=== PATIENT | male | born 1955 | race Caucasian/White ===

== ENCOUNTER 2017-05-11 09:42 | Inpatient (IN) | payer BC ==
[2017-05-10 10:45] VITALS: BMI 31.8
--- NOTE | 2017-05-10 21:10 | HP ---
HISTORY OF PRESENT ILLNESS: Rob Felix is a 61-year-old male patient who I have seen on 11/25/2016 for diverticulitis. 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 At that time, the patient had a CAT scan read by Dr. Pastor revealing changes with sigmoid diverticulitis and a 4 mm nonobstr ucting left renal calculus. The patient was treated with intravenous antibiotics and discharged home , but readmitted for continued intravenous antibiotics. Since that time although his pain and tender ness is improved in left lower quadrant, it is not resolved. He continues to have discomfort and thi s has exacerbated on two different occasions undergoing repeat course of antibiotics. The patient lechuga s recently undergone a colonoscopy on 04/25/2017 revealing hyperplastic polyps and no dysplasia, Dr. Romero. Due to his ongoing pain and tenderness, in Dr. Romero's opinion, the patient should consider col on resection. The patient has called requesting that due to his ongoing symptoms. He has been resta rted in his Augmentin recently on 04/09/2017. The patient will undergo a laparoscopic sigmoid colon resection. He understands the risks of infection, bleeding, anastomotic leakage, reoperation, ureter al injury, etc. and possible diverting ostomy and consents. PAST MEDICAL HISTORY: Environmental allergies, hypertension, GERD. PAST SURGICAL HISTORY: Diverticulitis. ALLERGIES: None. TOBACCO: None. ALCOHOL: None. MEDICATIONS: Augmentin, Lotrel 10/20 daily, vitamin C daily, meloxicam daily. PAST SURGICAL HISTORY: Arthroscopy, right knee. PAST MEDICAL HISTORY: Hypertension, recent colonoscopy. REVIEW OF SYSTEMS: Ten point noncontributory. PHYSICAL EXAMINATION: VITAL SIGNS: 248 pounds, 6 foot, 33 BMI, 194/85, 63, 97.7 degrees. LUNGS: Clear to auscultation. CARDIAC: Regular rate and rhythm without murmur or gallop. ABDOMEN: Soft. Mild tenderness in left lower quadrant, mild guarding. No peritoneal signs. Remain laila of abdomen is soft. EXTREMITIES: Unremarkable. ASSESSMENT AND PLAN: Non-resolving persistent diverticulitis. FINDINGS: The colonoscopy revealed changes of diverticulitis. Radiological findings last year revea led the same. If his pain is not resolving, we will plan laparoscopic possible open sigmoid resectio n.
[2017-05-11] MEDS ORDERED: Midazolam HCl 2 mg/2 ml Vial ONE (11:23)
[2017-05-11] MEDS ORDERED: Fentanyl 100 MCG/2 ML VIAL ONE ×3 (11:23→16:58)
[2017-05-11] MEDS ORDERED: Dexamethasone 4 mg/ml Vial ONE (11:24)
[2017-05-11 11:26] LABS: #Eosinphils 0.3 thou/uL (0.0-0.7); #Lymphocytes 2.4 thou/uL (1.20-3.40); #Monocytes 0.7 thou/uL (0.11-0.59); #Neutrophils 4.2 thou/uL (1.40-6.50); %Basophils 0.6 % (0.0-1.0); %Eosinophils 3.6 % (0.0-10.0); %Lymphocytes 31.2 % (21.0-51.0); %Monocytes 9.2 % (0.0-10.0); %Neutrophils 55.4 % (42.0-75.0); Hemoglobin 15.5 g/dL (14.0-18.0); Mean Corpuscular HGB CONC 33.4 g/dL (32.0-36.0); Mean Corpuscular Hemoglobin 30.2 pg (27.0-31.0); Mean Corpuscular Volume 90.4 fl (80.0-94.0); Mean Platelet Volume 6.7 fL (7.4-10.4); Platelet Count 217 thou/uL (130-400); RBC Distribution Width 12.8 % (11.5-14.5); Red Blood Cell (RBC) Count 5.14 mill/uL (4.70-6.10); White Blood Cell (WBC) Count 7.6 thou/uL (4.8-10.8)
[2017-05-11] MEDS ORDERED: CEFAZOLIN/Water 2 GM/20 ML SYRINGE ONE (11:26)
[2017-05-11] MEDS ORDERED: Heparin 5,000 UNITS/ML VIAL ONE (11:27)
[2017-05-11 11:33] LABS: Hemoglobin A1c 5.3 % (4.0-6.0)
[2017-05-11 11:47] LABS: Anion Gap 11 mmol/L (10-20); BUN (Urea Nitrogen) 21 mg/dL (8.4-25.7); Calc. Creatinine Clearance 71 mL/min (70-130); Calcium 9.5 mg/dL (7.8-10.44); Carbon Dioxide 28 mmol/L (23-31); Chloride 103 mmol/L (98-107); Estimated GFR-MDRD 43; Glucose 86 mg/dL (80-115); Potassium 3.8 mmol/L (3.5-5.1); Sodium 138 mmol/L (136-145)
[2017-05-11] MEDS ORDERED: cefOXitin 2 GM, Syringe 1 ML in Sterile Water 10 ML SLOW IVP SCH (12:15)
[2017-05-11] MEDS ORDERED: Ondansetron HCl/PF 4 MG/2 ML Vial ONE ×3 (12:25→14:36)
[2017-05-11] MEDS ORDERED: HYDROmorphone 0.5 MG/0.5 ML SYRINGE ONE (12:25)
[2017-05-11] MEDS ORDERED: Famotidine/PF 20 mg/2ml Vial ONE (12:25)
[2017-05-11] MEDS ORDERED: Albumin 5% 500 ML ONE (12:58)
--- NOTE | 2017-05-11 13:40 | EKG ---
Test Reason : PREOP Blood Pressure : / mmHG Vent. Rate : 059 BPM Atrial Rate : 059 BPM P-R Int : 164 ms QRS Dur : 110 ms QT Int : 410 ms P-R-T Axes : 061 067 029 degrees QTc Int : 405 ms Sinus bradycardia Non-specific intra-ventricular conduction delay Abnormal ECG Confirmed by COLLEEN LIU ([id number]) on 05/11/2017 1:40:19 PM Referred By: MIKAL Confirmed By:COLLEEN LIU
[2017-05-11] MEDS ORDERED: cefOXitin 2 GM VIAL ONE (14:00)
[2017-05-11] MEDS ORDERED: Lidocaine 1% PF 5 ML VIAL ONE (14:36)
[2017-05-11] MEDS ORDERED: Metoprolol Tartrate 5 MG/5 ML VIAL ONE (14:36)
[2017-05-11] MEDS ORDERED: Glycopyrrolate 0.2 MG/ML 5 ML SYRINGE ONE (14:36)
[2017-05-11] MEDS ORDERED: PROPOFOL 200 MG/20 ML VIAL ONE (14:36)
[2017-05-11] MEDS ORDERED: Ketorolac Tromethamine 30 MG/ML VIAL ONE (14:36)
[2017-05-11] MEDS ORDERED: Meperidine HCl/PF 25 MG/ML VIAL SLOW IVP PRN (16:11)
[2017-05-11] MEDS ORDERED: Promethazine HCl 25 MG/ML VIAL SLOW IVP PRN (16:11)
[2017-05-11] MEDS ORDERED: Promethazine HCl 25 MG/ML VIAL IM PRN (16:11)
[2017-05-11] MEDS ORDERED: Ondansetron HCl/PF 4 MG/2 ML Vial IVP PRN ×2 (16:11→16:52)
[2017-05-11] MEDS ORDERED: Ketorolac Tromethamine 30 MG/ML VIAL IVP PRN ×2 (16:52→22:00)
[2017-05-11] MEDS ORDERED: hydrALAZINE 20 MG/ML VIAL SLOW IVP PRN (16:52)
[2017-05-11] MEDS ORDERED: Scopolamine 1.5 mg/72 hour Patch TD SCH (17:00)
[2017-05-11] MEDS: D5 1/2 NS w/20 mEq KCL 1,000 ML IV SCH (18:17)
[2017-05-11] MEDS: Acetaminophen 1,000 MG in Premix Bag 1 BAG IVPB SCH (18:17)
[2017-05-11] MEDS ORDERED: Erythromycin Base 250 MG TAB PO SCH (18:30)
[2017-05-11] MEDS: Enoxaparin Sodium 40 MG/0.4 ML SYRINGE SC SCH (20:03)
[2017-05-11] MEDS ORDERED: Famotidine 20 MG TAB PO SCH (21:00)
[2017-05-11] MEDS ORDERED: Neomycin 500 mg Tablet PO SCH (21:00)
[2017-05-11] MEDS ORDERED: Famotidine/PF 20 mg/2ml Vial SLOW IVP SCH (21:00)
--- NOTE | 2017-05-11 23:34 | OP ---
DATE OF PROCEDURE: 05/11/2017 PREOPERATIVE DIAGNOSIS: Severe diverticulitis, intractable recurrent with persistent pain and tender ness, status post colonoscopy showing the same. POSTOPERATIVE DIAGNOSES: Severe diverticulitis, intractable recurrent with persistent pain and tende rness, status post colonoscopy showing the same, severe inflammatory reaction adherent to the bladder and segment of small bowel. PROCEDURES PERFORMED: Laparoscopic mobilization of the distal transverse colon, splenic flexure, prakash cending colon, identification of the ureter and conversion to a lower midline incision due to severe diverticulitis. Sigmoid colon resection with 33 mm EEA staple, colorectal anastomosis through the se gment of ileum, resected with primary anastomosis (small bowel adherent to the diverticulitis phlegmo n, requiring open resection of the small enterotomy inherent to the procedure due to severe diverticu litis). ESTIMATED BLOOD LOSS: 150 mL. BLOOD TRANSFUSED: None. PROCEDURE IN DETAIL: The patient was taken to the operating room where under general anesthesia in t he dorsal lithotomy position after tie block, Toussaint catheter was placed. Abdomen was clipped of hair , prepared with ChloraPrep, draped in routine fashion. Buttocks, perineum, perianal area were prepar ed with Betadine. Infraumbilical incision made and pneumoperitoneum to 15 mmHg obtained with the Clive ess needle, replacing it with a 5 port. Video laparoscope inserted. Left upper quadrant, right uppe r quadrant and left lower quadrant incision made and a 5 port placed. Right lower quadrant incision made and a 12 port placed. During the course of the procedure, right lateral slightly upper abdomina l incision made and another 5 port placed. The patient was placed in reverse Trendelenburg and the t ransverse colon from the mid transverse colon to the splenic flexure mobilized, taking down the gastr ocolic ligament adjacent to the transverse colon, splenic flexure using the LigaSure. Splenic flexur e of the colon mobilized and left colon mobilized off Gerota's fascia. Attention then turned to the pelvis where there was a severe inflammatory reaction to the pelvic sidewall and what was later appre ciated to be the bladder. The left ureter was identified clearly as were the gonadal vessels and kep t free of harm. There was such a severe scarring reaction that I could not safely proceed. Colon lechuga d been adequately mobilized. Laparoscopic instruments removed. Infraumbilical incision made. The i ncision carried down from the umbilicus to the pubis, entering the abdominal cavity sharply. Cautery used for hemostasis. Bookwalter retractor used for gentle retraction. Wounds protected with wet to wels. The colon was dissected free and the ureters kept free of harm as were the gonadal vessels. T he sigmoid colon was densely adherent to the bladder and great care was taken to take this down witho ut bladder injury. Colon mobilized. There was a segment of ileum adherent to the inflammatory phleg mon. I carefully dissected this free and in doing so, there was an enterotomy at the area of adheren ce and adherent to the procedure. Because of this, approximately a 5 cm segment of small bowel was r esected as it was on the mesenteric border, the enterostomy occurred where it was adherent to diverti cular phlegmon. Mesentery divided between clamps and cautery used for hemostasis and 3-0 silk ties a nd 2-0 silk ties used. Small bowel anastomosis created with a MOHINDER white load stapler. The common en terostomy closed with another 2 fires of the MOHINDER white load stapler. Mesenteric defect closed with 2 -0 silk, anastomosis staple and reinforced with interrupted Lembert suture of 3-0 silk. Good anastom osis palpated. The colon was then dissected free down in the pelvis at the colorectal junction. The colon was identified and, mesentery cleared the left colic vessel adjacent to the colon, divided bet ween clamps and ligated with 2-0 silk ties. The colon mobilized to an area at the junction of the de scending and sigmoid colon. At this point, a contour stapler was used to divide the colorectal junct ion. At the junction of the sigmoid and descending colon, the colon was partially divided and a purs estring suture of 2-0 Prolene was placed completing the division and submitted the specimen to pathgarry wheeler. This included a very large phlegmon along with a small segment of small bowel. A pursestring s uture of 2-0 Prolene completed and 33 mm anvil placed and it was tied around the anvil. At this poin t, a fatty tissue was cleared from the serosa. The anvil fit easily without tearing. The anus was g ently dilated with cocoa butter filter operator dilators. The 30 mm EEA stapling device placed per anus after lubricatio n and directed up to the staple line and the rectal pouch. It was properly positioned and there was no clearing necessary. The post advanced from the stapler out of the staple line and then it was mat ed with the anvil proximally and they were connected and approximated within the torque fire range an d then the EEA 33 mm stapler was fired. It was then loosened and both donuts were complete. It was then checked under water using a 30 mL balloon Toussaint catheter insufflating the colorectal area occlud ing the descending colon and it distended nicely without leak under water. The abdominal cavity thor oughly irrigated and irrigant evacuated. Hemostasis noted. Small bowel was inspected from the cecum proximally and no other injuries were present. As sponge, needle and instrument counts were correct , Seprafilm was applied between the viscera and abdominal wall and fascia approximated with continuou s suture of #1 PDS. Skin and subcutaneous tissues thoroughly irrigated after the operating crew cherry ged gloves. The skin approximated loosely with sarthak and a Prevena dressing applied after the lapa roscopic incisions were closed with interrupted subdermal 4-0 Monocryl and DermaGlue applied. The pa tient tolerated the procedure well without complications. Prevena dressing applied.
[2017-05-12] MEDS: Acetaminophen 1,000 MG in Premix Bag 1 BAG IVPB SCH ×3 (00:06→11:16)
[2017-05-12 04:56] LABS: #Lymphocytes 0.7 thou/uL (1.20-3.40); #Monocytes 0.9 thou/uL (0.11-0.59); #Neutrophils 9.5 thou/uL (1.40-6.50); %Eosinophils 0.2 % (0.0-10.0); %Lymphocytes 6.6 % (21.0-51.0); %Neutrophils 85.2 % (42.0-75.0); Hemoglobin 13.7 g/dL (14.0-18.0); Mean Corpuscular HGB CONC 33.5 g/dL (32.0-36.0); Mean Corpuscular Hemoglobin 30.7 pg (27.0-31.0); Mean Corpuscular Volume 91.6 fl (80.0-94.0); Mean Platelet Volume 7.2 fL (7.4-10.4); Platelet Count 216 thou/uL (130-400); RBC Distribution Width 12.9 % (11.5-14.5); Red Blood Cell (RBC) Count 4.47 mill/uL (4.70-6.10); White Blood Cell (WBC) Count 11.2 thou/uL (4.8-10.8)
[2017-05-12 04:57] LABS: Anion Gap 10 mmol/L (10-20); BUN (Urea Nitrogen) 31 mg/dL (8.4-25.7); Calc. Creatinine Clearance 58 mL/min (70-130); Calcium 8.6 mg/dL (7.8-10.44); Carbon Dioxide 25 mmol/L (23-31); Chloride 105 mmol/L (98-107); Estimated GFR-MDRD 34; Glucose 169 mg/dL (80-115); Potassium 4.4 mmol/L (3.5-5.1); Sodium 136 mmol/L (136-145)
[2017-05-12] MEDS: D5 1/2 NS w/20 mEq KCL 1,000 ML IV SCH ×3 (05:18→19:18)
[2017-05-12] MEDS ORDERED: Metoclopramide HCl 10 MG TAB PO SCH (07:30)
[2017-05-12] MEDS ORDERED: GLUCOSAMINE PO SCH (09:00)
[2017-05-12] MEDS ORDERED: Ascorbic Acid 500 mg Chewable Tablet PO SCH (09:00)
[2017-05-12] MEDS ORDERED: BOSWELLIA SERRA PO SCH (09:00)
[2017-05-12] MEDS ORDERED: D3 PO SCH (09:00)
[2017-05-12] MEDS: Fish Oil 1,000 MG CAP PO SCH (11:08)
[2017-05-12] MEDS: Lisinopril/Hydrochlorothiazide 20 mg/12.5 mg Tablet PO SCH (11:08)
[2017-05-12] MEDS ORDERED: traMADol HCl 50 MG TAB PO PRN ×2 (15:05)
--- NOTE | 2017-05-12 15:59 | PRG ---
DATE OF SERVICE: 05/12/2017 SUBJECTIVE: Mr. Rob Felix underwent a laparoscopy converted to a lower midline assisted sigmoid c olon resection due to adhesions and adherence to the bladder. He had a segment of small bowel resect ion approximately 4 cm. He has not had any nausea or vomiting. Pain control is good. 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 He is using nonnarcotic analgesics. He denies any nausea or vomiting. His mobility has been good. He has been ambulating in the hallways frequently this morning. OBJECTIVE: VITAL SIGNS: Temperature 97.8 degrees, pulse 66, respirations 18 and blood pressure 118/63. LUNGS: Clear to auscultation. CARDIAC: Regular rate and rhythm without murmur or gallop. ABDOMEN: Soft. Bowel sounds diminished, but present. Prevena incisional wound VAC lower wound look s good and laparoscopic incisions well healed, no infection. EXTREMITIES: Without edema. LABORATORY DATA: This morning, his white count was 11 and hemoglobin 13. Basic metabolic profile wa s normal. Creatinine 1.99, BUN 31, slightly elevated care stay, he has chronic kidney disease. ASSESSMENT AND PLAN: Doing well postoperative day #2. Colon resection. Toussaint catheter has been rem naty. He has avoided. We will plan to check his base met profile in the morning. We will saline lo ck him today. We will increase him to full liquids today and consider regular diet tomorrow and we w ill resume his home medications and antihypertensives. Anticipate discharge 24-48 hours pending clin ical course.
[2017-05-12] MEDS: Enoxaparin Sodium 40 MG/0.4 ML SYRINGE SC SCH (20:47)
[2017-05-13] MEDS: D5 1/2 NS w/20 mEq KCL 1,000 ML IV SCH ×3 (02:03→21:24)
[2017-05-13 04:38] LABS: Anion Gap 6 mmol/L (10-20); BUN (Urea Nitrogen) 29 mg/dL (8.4-25.7); Calc. Creatinine Clearance 75 mL/min (70-130); Calcium 8.7 mg/dL (7.8-10.44); Carbon Dioxide 29 mmol/L (23-31); Chloride 106 mmol/L (98-107); Estimated GFR-MDRD 46; Glucose 101 mg/dL (80-115); Potassium 4.2 mmol/L (3.5-5.1); Sodium 137 mmol/L (136-145)
[2017-05-13] MEDS ORDERED: Lisinopril/Hydrochlorothiazide 20 mg/12.5 mg Tablet PO SCH (09:00)
[2017-05-13] MEDS: Fish Oil 1,000 MG CAP PO SCH (10:20)
[2017-05-13] MEDS: Lisinopril/Hydrochlorothiazide 20 mg/12.5 mg Tablet PO SCH (10:20)
[2017-05-13] MEDS: Acetaminophen 500 MG TAB PO PRN ×2 (10:27→18:45)
--- NOTE | 2017-05-13 13:56 | PRG ---
DATE OF SERVICE: 05/13/2017 SUBJECTIVE: Rob Felix is doing well today. He is tolerating a regular diet. He has not passed f latus. He is not having nausea, vomiting, and not having any distention. OBJECTIVE: VITAL SIGNS: Temperature 97.6 degrees, pulse 66, blood pressure 158/75. LUNGS: Clear to auscultation. CARDIAC: Regular rate and rhythm without murmur, rub, or gallop. ABDOMEN: Soft, bowel sounds present, nondistended, nontender. Surgical wound looks good, Prevena in cisional VAC intact. LABORATORY DATA: Laboratories none today. ASSESSMENT AND PLAN: The patient is doing well. We will await GI function. Continue regular diet a nd anticipate discharge home tomorrow.
[2017-05-13] MEDS: Enoxaparin Sodium 40 MG/0.4 ML SYRINGE SC SCH (21:25)
[2017-05-14] MEDS: D5 1/2 NS w/20 mEq KCL 1,000 ML IV SCH (02:09)
[2017-05-14] MEDS: Acetaminophen 500 MG TAB PO PRN (03:33)
[2017-05-14] MEDS: Lisinopril/Hydrochlorothiazide 20 mg/12.5 mg Tablet PO SCH (08:02)
[2017-05-14 08:03] VITALS: BP 131/71
[2017-05-14] MEDS: Fish Oil 1,000 MG CAP PO SCH (08:03)
--- NOTE | 2017-05-14 08:14 | PRG ---
DATE OF SERVICE: 05/14/2017 Mr. Felix is doing well today. PHYSICAL EXAMINATION: VITAL SIGNS: Stable, afebrile. GENERAL: He has had a bowel movement, passed flatus, tolerating a regular diet. LUNGS: Clear to auscultation. CARDIAC: Regular rate and rhythm without murmur or gallop. ABDOMEN: Soft, nontender. Prevena wound incisional VAC in place and will be removed today. He will be discharged home with follow up in my office in the next week for staple removal. He can s hower bathe, he can leave his wound open. He can pat it dry. No lifting over 25 pounds, otherwise a ctive and ambulatory. Discharge home today.
[2017-05-14 08:17] VITALS: TEMP 98.6
--- NOTE | 2017-05-14 08:29 | DIS ---
DATE OF ADMISSION: 05/11/2017 DATE OF DISCHARGE: 05/14/2017 DISCHARGE DIAGNOSIS: Diverticulitis refractory to nonsurgical management. DISCHARGE MEDICATIONS: Pane-imk-hsvehua Tylenol and Motrin as needed. Resume home medications, jose nopril and Tylenol extra strength. OTHER DISCHARGE DIAGNOSES: Chronic kidney disease, creatinine 1.5 to 1.6. It did increase to 1.9 th is hospitalization down to baseline of 1.5, BUN of 21 to 31. GFR 34 to 46. HISTORY: A 61-year-old male patient with onset of diverticulitis on almost continuous antibiotics fo r the past several months, undergoing colonoscopy prior to this hospitalization revealing changes of diverticulitis, edema, narrowing. The patient underwent elective laparoscopic assisted colon resecti on. Infraumbilical midline incision was made due to severe phlegmon inflammation and adherence of sm all bowel and colon to the bladder and the diverticulitis process. A segmental small bowel resection performed. Postoperatively, the patient convalesced, tolerated diet, had bowel movements, GI functi on, being discharged home. He will followup in my office in a week for staple removal. Prevena woun d VAC applied during hospitalization, removed prior to discharge.
== END 2017-05-14 08:45 | disposition home or self-care (01) | DRG 330 ==
LOC: SURG A 10:25
PROVIDERS: ADMIT Specialist; ATTEND Specialist
PROC: 0DTN0ZZ Resection of Sigmoid Colon, Open Approach (ICD-10-PCS; principal; 2017-05-11)
PROC: 0DBB0ZZ Excision of Ileum, Open Approach (ICD-10-PCS; 2017-05-11)
PROC: 0DNN0ZZ Release Sigmoid Colon, Open Approach (ICD-10-PCS; 2017-05-11)
PROC: 0DJD4ZZ Inspection of Lower Intestinal Tract, Percutaneous Endoscopic Approach (ICD-10-PCS; 2017-05-11)
PROC: 3E0T3BZ Introduction of Anesthetic Agent into Peripheral Nerves and Plexi, Percutaneous Approach (ICD-10-PCS; 2017-05-11)
PROC: 3E0T3BZ Introduction of Anesthetic Agent into Peripheral Nerves and Plexi, Percutaneous Approach (ICD-10-PCS; 2017-05-11)
DX: K57.20 Diverticulitis of large intestine with perforation and abscess without bleeding (principal); I12.9 Hypertensive chronic kidney disease with stage 1 through stage 4 chronic kidney disease, or unspecified chronic kidney disease; K66.0 Peritoneal adhesions (postprocedural) (postinfection); Z53.31 Laparoscopic surgical procedure converted to open procedure; N18.9 Chronic kidney disease, unspecified; K21.9 Gastro-esophageal reflux disease without esophagitis
CPT/HCPCS: 36415; 36416; 80048; 83036; 85025; 88307; 93005; 93010; A4216; J0131; J0360; J0694; J1100; J1170; J1644; J1650; J1885; J2001; J2250; J2270; J2405; J2704; J3010; P9045; S0028

== ENCOUNTER 2018-02-13 02:11 | Emergency (ER) | payer BC ==
[2018-02-13] MEDS ORDERED: HYDROcodone/Acetaminophen 5/325 mg Tablet ONE (02:46)
[2018-02-13 03:09] LABS: #Basophils 0.1 thou/uL (0.0-0.2); #Eosinphils 0.2 thou/uL (0.0-0.7); #Lymphocytes 2.1 thou/uL (1.20-3.40); #Monocytes 0.8 thou/uL (0.11-0.59); #Neutrophils 3.2 thou/uL (1.40-6.50); %Eosinophils 3.7 % (0.0-10.0); %Monocytes 12.5 % (0.0-10.0); %Neutrophils 49.8 % (42.0-75.0); Hemoglobin 15.6 g/dL (14.0-18.0); Mean Corpuscular HGB CONC 34.2 g/dL (32.0-36.0); Mean Corpuscular Hemoglobin 31.4 pg (27.0-31.0); Mean Corpuscular Volume 91.7 fL (78.0-98.0); Mean Platelet Volume 6.7 fL (7.4-10.4); Platelet Count 263 thou/uL (130-400); RBC Distribution Width 11.7 % (11.5-14.5); Red Blood Cell (RBC) Count 4.98 mill/uL (4.70-6.10); White Blood Cell (WBC) Count 6.4 thou/uL (4.8-10.8)
[2018-02-13 03:28] LABS: ALT (SGPT) 53 U/L (8-55); AST (SGOT) 40 U/L (5-34); Albumin 4.2 g/dL (3.4-4.8); Alkaline Phosphatase 61 U/L (40-150); Anion Gap 13 mmol/L (10-20); BUN (Urea Nitrogen) 24 mg/dL (8.4-25.7); Bilirubin, Total 0.4 mg/dL (0.2-1.2); Calc. Creatinine Clearance 0 mL/min (70-130); Calcium 9.3 mg/dL (7.8-10.44); Carbon Dioxide 25 mmol/L (23-31); Chloride 107 mmol/L (98-107); Estimated GFR-MDRD 45; Globulin 3.9 g/dL (2.4-3.5); Glucose 121 mg/dL (80-115); Potassium 4.3 mmol/L (3.5-5.1); Protein, Total 8.1 g/dL (5.8-8.1); Sodium 141 mmol/L (136-145)
--- NOTE | 2018-02-13 07:53 | RAD ---
CHEST PA AND LATERAL: History: 62-year-old male with history of neck and shoulder pain. FINDINGS: Heart size is within normal limits. The lungs are clear. No pneumonia, edema, or pleural effusion. IMPRESSION: No acute intrathoracic disease. POS: [facility]
== END 2018-02-13 03:31 | disposition home or self-care (01) ==
LOC: ERS 02:11
DX: M62.838 Other muscle spasm (principal); I10 Essential (primary) hypertension; E78.5 Hyperlipidemia, unspecified; Z79.899 Other long term (current) drug therapy
CPT/HCPCS: 36415; 71046; 80053; 85025; 85652

== ENCOUNTER 2018-05-09 11:34 | Outpatient (CLI) | payer BC ==
[2018-05-09 13:43] LABS: Hemoglobin 15.3 g/dL (14.0-18.0); Mean Corpuscular HGB CONC 33.1 g/dL (32.0-36.0); Mean Corpuscular Hemoglobin 31.4 pg (27.0-31.0); Mean Corpuscular Volume 95.1 fL (78.0-98.0); Mean Platelet Volume 7.3 fL (7.4-10.4); Platelet Count 266 thou/uL (130-400); RBC Distribution Width 11.7 % (11.5-14.5); Red Blood Cell (RBC) Count 4.87 mill/uL (4.70-6.10); White Blood Cell (WBC) Count 7.6 thou/uL (4.8-10.8)
[2018-05-09 13:50] LABS: INR-International Normal Ratio 0.9; PTT 28.1 SEC (22.9-36.1); Prothrombin Time 12.4 SEC (12.0-14.7)
[2018-05-09 14:05] LABS: Anion Gap 16 mmol/L (10-20); BUN (Urea Nitrogen) 20 mg/dL (8.4-25.7); Calc. Creatinine Clearance 0 mL/min (70-130); Calcium 9.8 mg/dL (7.8-10.44); Carbon Dioxide 23 mmol/L (23-31); Chloride 105 mmol/L (98-107); Estimated GFR-MDRD 47; Glucose 120 mg/dL (80-115); Potassium 3.6 mmol/L (3.5-5.1); Sodium 140 mmol/L (136-145)
--- NOTE | 2018-05-10 07:07 | EKG ---
Test Reason : Blood Pressure : / mmHG Vent. Rate : 059 BPM Atrial Rate : 059 BPM P-R Int : 170 ms QRS Dur : 110 ms QT Int : 416 ms P-R-T Axes : 057 074 046 degrees QTc Int : 411 ms Sinus bradycardia Cannot rule out Anterior infarct , age undetermined (Doubtful) /Poor R wave progression Abnormal ECG When compared with ECG of 11-MAY-2017 11:09, Minimal criteria for Anterior infarct are now Present T wave amplitude has decreased in Anterior leads Confirmed by EFRAIN BATISTA ([id number]) on 05/10/2018 7:07:24 AM Referred By: PEYTON Confirmed By:EFRAIN BATISTA
== END 2018-05-09 11:35 | disposition home or self-care (01) ==
LOC: LABBT 11:34
PROVIDERS: ATTEND Surgery
DX: Z01.818 Encounter for other preprocedural examination (principal); M54.12 Radiculopathy, cervical region; M48.02 Spinal stenosis, cervical region
CPT/HCPCS: 80048; 85027; 85610; 85730; 93005; 93010

== ENCOUNTER 2018-05-16 05:48 | Day surgery (SDC) | payer BC ==
[2018-05-09 11:39] VITALS: BMI 33.9
[2018-05-16] MEDS ORDERED: Thrombin 5000 UNITS/5 ML VIAL ONE (06:41)
[2018-05-16] MEDS ORDERED: Sodium Chloride 0.9% 10 ML ONE (06:41)
[2018-05-16] MEDS ORDERED: Fentanyl 100 MCG/2 ML VIAL ONE ×2 (06:55→11:29)
[2018-05-16] MEDS ORDERED: Midazolam HCl 2 mg/2 ml Vial ONE (07:16)
[2018-05-16] MEDS ORDERED: traMADol HCl 50 MG TAB PO PRN (09:58)
[2018-05-16] MEDS ORDERED: Acetaminophen 325 MG TAB PO PRN (09:58)
[2018-05-16] MEDS ORDERED: HYDROcodone/Acetaminophen 7.5/325 mg Tablet PO PRN ×4 (09:58→18:00)
[2018-05-16] MEDS ORDERED: tiZANidine HCl 4 MG TAB PO PRN (09:58)
[2018-05-16] MEDS ORDERED: Acetaminophen/Codeine 30-300mg Tablet PO PRN (09:58)
[2018-05-16] MEDS ORDERED: Promethazine HCl 25 MG/ML VIAL IM PRN (09:58)
[2018-05-16] MEDS ORDERED: Ondansetron HCl/PF 4 MG/2 ML Vial IVP PRN (10:03)
[2018-05-16] MEDS ORDERED: HYDROmorphone 2 MG/ML VIAL SLOW IVP PRN (10:03)
[2018-05-16] MEDS ORDERED: PACU-Morphine 4MG/ML VIAL SLOW IVP PRN (10:03)
[2018-05-16] MEDS ORDERED: HYDROmorphone 2 MG/ML VIAL ONE (10:32)
--- NOTE | 2018-05-16 12:03 | OP ---
DATE OF PROCEDURE: 05/16/2018 OPERATING ROOM: OR 11. WOUND CLASSIFICATION: Type 1 wound. CHICKEN CLEANER: Jonas Aj PA-C. PREPROCEDURE DIAGNOSIS: Right C5 and C6 radiculopathy with neck and right arm pain. POSTPROCEDURE DIAGNOSIS: Right C5 and C6 radiculopathy with neck and right arm pain. PROCEDURES: 1. C4-C5 and C5-C6 anterior cervical diskectomies for decompression of spinal cord nerve roots. 2. Placement of interbody spacer C4-C5, C5-C6 packed with graft for arthrodesis. 3. Anterior cervical plate and screw fixation, C4, C5, and C6. 4. Use of operative microscope for microdissection. DESCRIPTION OF PROCEDURE: After informed consent was obtained from the patient, the patient was brought to the OR. Proper patient, pause, and identification were carried out. The cervical spine was kept in neutral position and right anterior oblique tony was drawn out. This area was sterilely cleansed, prepared and draped. Proper patient, pause, and identification were carried out. The wound was then opened in a combination of sharp, monopolar, and blunt dissection, proceeded lateral to the larynx, pharynx, tracheoesophageal bundle medial to the right carotid sheath. We identified the prevertebral layer of deep cervical fascia and retractors were placed. We then performed distraction at C4-C5. Following localization, diskectomy was performed with use of operative microscope with excellent decompression of the dural tube and bilateral C5 nerve roots and the endplates were prepared and interbody spacer of appropriate dimension was packed with graft and placed C4-C5 for arthrodesis. We then turned our attention to distraction at C5-C6. Diskectomy was performed there with decompression of the common dural tube and bilateral C6 nerve roots. The endplates were prepared and interbody spacer packed with graft was placed for arthrodesis at C5-C6. We were very pleased with our decompression and preparation of endplates. Copious irrigation occurred throughout as did maximizing hemostasis. The wound was then closed in anatomic layers. The patient then emerged from anesthesia. We closed the wound over drain. Job ID: [id number]
[2018-05-16] MEDS ORDERED: Rocuronium Bromide 10 MG/ML (10ML VIAL) ONE (13:59)
[2018-05-16] MEDS ORDERED: Lidocaine 1% PF 5 ML VIAL ONE (13:59)
[2018-05-16] MEDS ORDERED: PROPOFOL 200 MG/20 ML VIAL ONE (13:59)
[2018-05-16] MEDS ORDERED: diphenhydrAMINE 50 MG/ML VIAL ONE (13:59)
[2018-05-16] MEDS ORDERED: Dexamethasone 20 MG/5 ML VIAL ONE (13:59)
[2018-05-16] MEDS ORDERED: ePHEDrine 50 MG/ML VIAL ONE (13:59)
[2018-05-16] MEDS ORDERED: Ondansetron PF 4 MG/2 ML Vial ONE (13:59)
[2018-05-16] MEDS ORDERED: PHENYLEPHRINE-NS 100 MCG/ML 10 ML SYRINGE ONE (13:59)
[2018-05-16] MEDS ORDERED: Glycopyrrolate 0.2 MG/ML 5 ML SYRINGE ONE (13:59)
[2018-05-16] MEDS: Sodium Chloride 0.9% 1,000 ML IV SCH ×2 (14:52→23:25)
[2018-05-16] MEDS: Morphine 2 MG/ML SYRINGE SLOW IVP PRN ×3 (14:52→16:36)
[2018-05-16] MEDS: CEFAZOLIN 2 GM in Premix Bag 1 BAG IVPB SCH ×2 (14:52→22:14)
[2018-05-16] MEDS ORDERED: Docusate 100 MG CAP PO SCH (21:00)
[2018-05-16] MEDS: HYDROcodone/Acetaminophen 7.5/325 mg Tablet PO PRN (22:11)
[2018-05-17] MEDS: CEFAZOLIN 2 GM in Premix Bag 1 BAG IVPB SCH (05:40)
[2018-05-17] MEDS: HYDROcodone/Acetaminophen 7.5/325 mg Tablet PO PRN ×2 (05:40→09:24)
[2018-05-17 08:03] VITALS: BP 148/66; TEMP 98.4
[2018-05-17] MEDS ORDERED: Ascorbic Acid 500 mg Chewable Tablet PO SCH (09:00)
[2018-05-17] MEDS ORDERED: Amlodipine 10 MG TAB PO SCH (09:00)
[2018-05-17] MEDS ORDERED: Lactinex Tablet PO SCH (09:00)
[2018-05-17] MEDS ORDERED: Lisinopril/Hydrochlorothiazide 20 mg/12.5 mg Tablet PO SCH (09:00)
--- NOTE | 2018-05-17 09:25 | PRG ---
DATE OF SERVICE: 05/17/2018 SUBJECTIVE: Mr. Felix is postoperative day 1 from C4-C6 ACDF. He is doing well with improvement in his arm pain. We went over interim postoperative issues. His drain output has been acceptable. We will remove it and dismiss him. Job ID: [id number]
== END 2018-05-17 10:15 | disposition home or self-care (01) ==
LOC: SDC 05:48 → 3SE 11:20 → SDC 05-17 10:15
PROVIDERS: ATTEND Surgery
PROC: 0RG20A0 Fusion of 2 or more Cervical Vertebral Joints with Interbody Fusion Device, Anterior Approach, Anterior Column, Open Approach (ICD-10-PCS; principal; 2018-05-16)
PROC: 0RT30ZZ Resection of Cervical Vertebral Disc, Open Approach (ICD-10-PCS; principal; 2018-05-16)
DX: M50.121 Cervical disc disorder at C4-C5 level with radiculopathy (principal); M48.02 Spinal stenosis, cervical region; M47.22 Other spondylosis with radiculopathy, cervical region; Z79.899 Other long term (current) drug therapy
CPT/HCPCS: 76000; C1713; C1776; J1100; J1170; J1200; J2001; J2250; J2270; J2405; J2704; J3010; J3490

== ENCOUNTER 2018-06-24 08:20 | Outpatient (CLI) | payer BC ==
--- NOTE | 2018-06-24 09:14 | RAD ---
CERVICAL SPINE 4 VIEWS: INDICATION: Cervical radicular symptoms. Followup surgery. COMPARISON: 03/05/2018 cervical spine. FINDINGS: Postoperative changes are noted since the prior study. Anterior fusion procedure. Anterior plate an d screws transfix C4, C5, and C6 with interbody implants. Posterior alignment is normally maintained . The disk spaces are preserved. Mild degenerative changes. There is loss of vertebral body height at C6 when compared to the prior study. IMPRESSION: Postoperative changes are noted as described above. POS: [facility]
== END 2018-06-24 08:21 | disposition home or self-care (01) ==
LOC: TBSIIMAG 08:20
PROVIDERS: ATTEND Surgery
DX: M48.02 Spinal stenosis, cervical region (principal); M50.10 Cervical disc disorder with radiculopathy, unspecified cervical region; Z98.890 Other specified postprocedural states
CPT/HCPCS: 72040

== ENCOUNTER 2018-10-10 07:05 | Outpatient (CLI) | payer BC ==
--- NOTE | 2018-10-10 07:55 | ULT ---
EXAM: US Hepatic Doppler PROVIDED CLINICAL HISTORY: Abnormal liver function tests. COMPARISON: None FINDINGS: Liver demonstrates slight heterogeneity and predominantly increased echogenicity which is likely refl ective of fatty infiltration. No definite focal hepatic mass is seen. Limited visualized portions of the pancreas, visualized portions of the IVC, gallbladder, and spleen demonstrate a normal sonogra phic appearance. The common duct measures 0.4 cm in diameter which is within normal limits. Hepatic Doppler with spectral analysis and color flow evaluation: Normal directional flow is seen within the hepatic, splenic, and portal veins. Arterial waveforms are seen within the splenic and hepatic arteries. IMPRESSION: 1. Fatty infiltration of the liver. 2. No gallbladder calculi are seen, and the common duct is normal in caliber. 3. Normal directional flow is seen within the portal, hepatic, and splenic veins.
== END 2018-10-10 07:06 | disposition home or self-care (01) ==
LOC: SCSULT 07:05
PROVIDERS: ATTEND Physician Assistant Medical
DX: K76.0 Fatty (change of) liver, not elsewhere classified (principal); R94.5 Abnormal results of liver function studies
CPT/HCPCS: 76705

== ENCOUNTER 2019-03-06 15:00 | Outpatient (CLI) | payer BC ==
--- NOTE | 2019-03-06 15:39 | ULT ---
ULTRASOUND RETROPERITONEUM COMPLETE: (RENAL) DATE: 03/06/2019 HISTORY: 63-year-old male with chronic kidney disease, stage not specified. COMPARISON: None FINDINGS: The right kidney measures 10 x 5.5 x 6.5 cm. The left kidney measures 10 x 6 x 5.5 cm. Both kidneys have normal parenchymal echogenicity. There is no hydronephrosis. At the mid pole parenchyma of the right kidney, there is an approximately 3.5 x 4 x 5 cm solid mass w ith echogenicity similar to that of adjacent renal parenchyma.. Post void bladder volume 40 mL. IMPRESSION: 1. Approximately 5 cm solid right renal mass highly suspicious for neoplasm such as renal cell carcin rima. 2. No hydronephrosis. 3. Incomplete micturition.
== END 2019-03-06 15:01 | disposition home or self-care (01) ==
LOC: BICULT 15:00
PROVIDERS: ATTEND Internal Medicine Nephrology
DX: N18.3 Chronic kidney disease, stage 3 (moderate) (principal); N28.89 Other specified disorders of kidney and ureter; R39.14 Feeling of incomplete bladder emptying
CPT/HCPCS: 76770

== ENCOUNTER 2019-03-14 14:36 | Outpatient (CLI) | payer BC ==
--- NOTE | 2019-03-14 15:53 | CT ---
ABDOMEN CT WITH AND WITHOUT CONTRAST: HISTORY: Chronic kidney disease. Evaluate for renal mass. Abnormal ultrasound. COMPARISON: None. CORRELATION: Renal ultrasound 03/06/2019. TECHNIQUE: Abdomen is performed with and without contrast following renal mass protocol. Coronal reformatted lacho ges are submitted for interpretation. FINDINGS: Lung bases: Minimal atelectatic changes and scarring. No masses or consolidation. Heart: Normal heart size. No significant pericardial fluid. Aorta: Normal caliber. No aneurysm. Minimal atherosclerosis. Liver: Appropriate enhancement. No enhancing masses. Spleen: Appropriate enhancement. Pancreas: Appropriate enhancement. Adrenal glands: Symmetric enhancement. Lymph nodes: No gastrohepatic, retrocrural or periportal lymphadenopathy. Portal vein: Patent. Gallbladder: Unremarkable. Kidneys: Noncontrast: No hydronephrosis, or significant perinephric fat stranding. Nonobstructing 3 mm calculu s in the left renal pelvis. Visualized ureters have a normal caliber. Contrast: Symmetric enhancement of the kidneys. 0.6 cm hypodensity in the upper pole of the right kid susan is too small to characterize. There are no enhancing masses in the left or right renal cortex. Delayed: Symmetric excretion into a decompressed intrarenal collecting systems as well as the visuali zed extra renal collecting systems. No filling defect. Mesentery: No mass, nephropathy, free air or free fluid. Alimentary canal: Limited evaluation due to lack of oral contrast administration. No evidence of jose l obstruction. The ileocecal junction is normal. Normal caliber appendix. Scattered fecal material in a nondistended/nondilated colon. No lytic or blastic lesions in the osseous structures. IMPRESSION: 1. Hypodense lesion in the right kidney, too small to characterize but is statistically favored to be a cyst. 2. No evidence of a solid mass in the right renal cortex. 3. Nonobstructing left renal calculus. Transcribed Date/Time: 03/14/2019 3:58 PM
== END 2019-03-14 14:37 | disposition home or self-care (01) ==
LOC: BICCT 14:36
PROVIDERS: ATTEND Internal Medicine Nephrology
DX: N18.3 Chronic kidney disease, stage 3 (moderate) (principal); N28.89 Other specified disorders of kidney and ureter; N20.0 Calculus of kidney
CPT/HCPCS: 74170

== ENCOUNTER 2019-06-10 13:16 | Inpatient (IN) | payer BC ==
[2019-06-10 14:29] LABS: #Eosinphils 0.1 thou/uL (0.0-0.7); #Lymphocytes 1.3 thou/uL (1.20-3.40); #Monocytes 0.7 thou/uL (0.11-0.59); #Neutrophils 7.3 thou/uL (1.40-6.50); %Basophils 0.4 % (0.0-1.0); %Eosinophils 0.8 % (0.0-10.0); %Lymphocytes 13.3 % (21.0-51.0); %Monocytes 7.6 % (0.0-10.0); %Neutrophils 77.9 % (42.0-75.0); Hemoglobin 15.2 g/dL (14.0-18.0); Mean Corpuscular HGB CONC 35.2 g/dL (32.0-36.0); Mean Corpuscular Hemoglobin 32.3 pg (27.0-31.0); Mean Corpuscular Volume 91.9 fL (78.0-98.0); Platelet Count 203 thou/uL (130-400); RBC Distribution Width 11.8 % (11.5-14.5); White Blood Cell (WBC) Count 9.4 thou/uL (4.8-10.8)
--- NOTE | 2019-06-10 14:37 | RAD ---
PORTABLE UPRIGHT FRONTAL CHEST RADIOGRAPH: Date: 06/10/2019 COMPARISON: None. HISTORY: Chest pain. FINDINGS: No pneumothorax, pleural fluid, focal consolidation, or alveolar edema. Heart and mediastinal contour s appear grossly unremarkable. IMPRESSION: No acute findings. POS: [facility]
[2019-06-10 14:57] LABS: ALT (SGPT) 20 U/L (8-55); AST (SGOT) 27 U/L (5-34); Albumin 4.2 g/dL (3.4-4.8); Alkaline Phosphatase 56 U/L (40-110); Anion Gap 14 mmol/L (10-20); BUN (Urea Nitrogen) 19 mg/dL (8.4-25.7); Bilirubin, Total 0.4 mg/dL (0.2-1.2); Calc. Creatinine Clearance 0 mL/min (70-130); Calcium 9.1 mg/dL (7.8-10.44); Carbon Dioxide 25 mmol/L (23-31); Chloride 104 mmol/L (98-107); Estimated GFR-MDRD 43; Globulin 3.4 g/dL (2.4-3.5); Glucose 120 mg/dL (80-115); Potassium 3.8 mmol/L (3.5-5.1); Protein, Total 7.6 g/dL (5.8-8.1); Sodium 139 mmol/L (136-145)
[2019-06-10 15:11] LABS: CKMB 5.3 ng/mL (0-6.6)
[2019-06-10] MEDS ORDERED: Enoxaparin Sodium 100 MG/ML SYRINGE ONE (15:45)
[2019-06-10] MEDS ORDERED: Enoxaparin Sodium 30 MG/0.3 ML SYRINGE ONE ×2 (15:45→15:47)
[2019-06-10 16:03] LABS: INR-International Normal Ratio 0.9; PTT 28.1 SEC (22.9-36.1); Prothrombin Time 11.9 SEC (12.0-14.7)
[2019-06-10] MEDS ORDERED: Nitroglycerin 0.4 MG TAB (25 Tab Bottle) PO PRN (16:51)
[2019-06-10] MEDS ORDERED: Calcium Carbonate 500 MG ChewTAB PO PRN (16:57)
[2019-06-10] MEDS ORDERED: Acetaminophen 650 MG Suppository PR PRN (16:57)
[2019-06-10] MEDS ORDERED: Acetaminophen 325 MG TAB PO PRN (16:57)
--- NOTE | 2019-06-10 17:05 | PDOC.HHP ---
Hospitalist HPI - History of Present Illness Chest pain History of Present Illness: PCP: Waqas The patient is a 63/M with PMH significant for HTN, HLD and hiatal hernia that presents for above complaint. The patient reports that he was working in his yard when he developed acute onset of chest pain, located substernal, non radiating, described as pressure "from within", constant, with associated diaphoresis and light headedness. Denies heart palpitations, lower extremity swelling or SOB, fever/chills, abdominal pain, vomiting or diarrhea. He also reports that he has LY when walking up a hill on his property recently. For these reasons, his spouse took him to [facility] for further evaluation. ED Course: EMS gave ASA and SL Nitro x 2, which improved his symptoms. At [facility], his chest pain resolved, after approximately 1 hour duration. VS 98F, BP 169/79, HR 61, RR 13, Sp02 100% RA EKG SB, 57 bpm, no ST or T changes Trop 0.250 CKMB 5.3 CXR no acute findings Given: LMWH 1mg/Kg Hospitalist ROS - Review of Systems Constitutional: denies: fever, chills, sweats, weakness, malaise, other Eyes: denies: pain, vision change, conjunctivae inflammation, eyelid inflammation, redness, other ENT: denies: ear pain, ear discharge, nose pain, nose discharge, nose congestion , mouth pain, mouth swelling, throat pain, throat swelling, other Respiratory: denies: cough, dry, shortness of breath, hemoptysis, SOB with excertion, pleuritic pain, sputum, wheezing, other Cardiovascular: reports: chest pain, light headedness, other (diaphoresis). denies: palpitations, orthopnea, paroxysmal noc. 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 Gastrointestinal: reports: Other (hiatal hernia) Hepatobiliary: reports: no pertinent history Psych: reports: no pertinent history Rheumatologic: reports: no pertinent history Infectious Disease: reports: no pertinent history ENT: reports: no pertinent history Renal/: reports: no pertinent history Endocrine: reports: no pertinent history Dermatology: reports: no pertinent history - Past Surgical History Past Surgical History: reports: Tonsillectomy Other Surgical History: Left wrist, Left Knee x 2 - Family History Family History: reports: cardiac disorder - Social History Smoking Status: Never smoker Alcohol: reports: Occassional Drugs: reports: none Living Situation: With Family 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, retired Finance Administrator Activity level: independent ambulation - Exam General Appearance: NAD, awake alert Eye: anicteric sclera ENT: normocephalic atraumatic Neck: supple, no JVD, no thyromegaly, no carotid bruit Heart: RRR, no murmur, no gallops, no rubs, normal peripheral pulses Respiratory: CTAB, no wheezes, no rales, no ronchi Gastrointestinal: soft, non-tender, non-distended, normal bowel sounds, no guarding, no rigidity Extremities: no cyanosis, no edema Skin: normal turgor, no lesions, no rashes Neurological: no focal deficits Musculoskeletal: normal tone, normal strength Psychiatric: normal affect, A&O x 3 Hospitalist Results - Labs Result Diagrams: 06/10/19 14:22 06/10/19 14:22 Lab results: WBC 9.4 thou/uL (4.8-10.8) 06/10/19 14:22 Hgb 15.2 g/dL (14.0-18.0) 06/10/19 14:22 Hct 43.2 % (42.0-52.0) 06/10/19 14:22 MCV 91.9 fL (78.0-98.0) 06/10/19 14:22 Plt Count 203 thou/uL (130-400) 06/10/19 14:22 Neutrophils % 77.9 % (42.0-75.0) H 06/10/19 14:22 Sodium 139 mmol/L (136-145) 06/10/19 14:22 Potassium 3.8 mmol/L (3.5-5.1) 06/10/19 14:22 Chloride 104 mmol/L (98-107) 06/10/19 14:22 Carbon Dioxide 25 mmol/L (23-31) 06/10/19 14:22 BUN 19 mg/dL (8.4-25.7) 06/10/19 14:22 Creatinine 1.63 mg/dL (0.7-1.3) H 06/10/19 14:22 Glucose 120 mg/dL (80-115) H 06/10/19 14:22 Calcium 9.1 mg/dL (7.8-10.44) 06/10/19 14:22 Total Bilirubin 0.4 mg/dL (0.2-1.2) 06/10/19 14:22 AST 27 U/L (5-34) 06/10/19 14:22 ALT 20 U/L (8-55) 06/10/19 14:22 Alkaline Phosphatase 56 U/L (40-110) 06/10/19 14:22 CK-MB (CK-2) 5.3 ng/mL (0-6.6) 06/10/19 14:22 Troponin I 0.250 ng/mL (< 0.028) H 06/10/19 14:22 Serum Total Protein 7.6 g/dL (5.8-8.1) 06/10/19 14:22 Albumin 4.2 g/dL (3.4-4.8) 06/10/19 14:22 - EKG Interpretation EKG: SB, 57 bpm - Radiology Interpretation Chest x-ray Status: report reviewed by me Hospitalist H&P A/P - Problem (1) NSTEMI (non-ST elevated myocardial infarction) Code(s): I21.4 - NON-ST ELEVATION (NSTEMI) MYOCARDIAL INFARCTION Status: Acute Assessment and Plan: Upon exam, no active chest pain at this time. Admit to telemetry floor, inpatient status Expected stay > 2 midnights HEART score 5 Trend troponins Order echocardiogram Consult cardiology Continue LMWH 1mg/kg BID Continue ASA Start nitropaste Start statin therapy npo p midnight, IVF hydration Check TSH and Mag (2) HTN (hypertension) Code(s): I10 - ESSENTIAL (PRIMARY) HYPERTENSION Status: Chronic Assessment and Plan: Will hold lisinopril for now r/t possible procedure Will restart amlodipine when medication reconciled. Will monitor blood pressure. (3) HLD (hyperlipidemia) Code(s): E78.5 - HYPERLIPIDEMIA, UNSPECIFIED Status: Chronic Assessment and Plan: Patient reports was taking Lipitor 40mg, prescription , has not returned for checkup and new prescription Will start lipitor 40mg q hs Will check lipid profile in am (4) CKD (chronic kidney disease) stage 3, GFR 30-59 ml/min Code(s): N18.3 - CHRONIC KIDNEY DISEASE, STAGE 3 (MODERATE) Status: Chronic Assessment and Plan: Stable 02/04: Creatinine 1.57 and GFR 45 (5) Hiatal hernia Code(s): K44.9 - DIAPHRAGMATIC HERNIA WITHOUT OBSTRUCTION OR GANGRENE Status: Chronic Assessment and Plan: PPI for GI prophylaxis - Plan Plan: No DVT prophylaxis, patient on LMWH 1mg/kg GI prophylaxis Full Code DIETER Ekaterina @ [phone]
[2019-06-10 18:26] LABS: Troponin I 0.889 ng/mL (< 0.028)
[2019-06-10 20:47] VITALS: BMI 32.6
[2019-06-10] MEDS: Nitroglycerin 2% Ointment 1 INCH/1 GM Packet TOP SCH (20:58)
[2019-06-10] MEDS: Atorvastatin Calcium 40 MG TAB PO SCH (20:59)
[2019-06-10 21:27] LABS: Troponin I 1.228 ng/mL (< 0.028)
[2019-06-10] MEDS: Sodium Chloride 0.9% 1,000 ML IV SCH (23:55)
[2019-06-11 00:28] LABS: Troponin I 1.431 ng/mL (< 0.028)
[2019-06-11 04:22] LABS: #Basophils 0.1 thou/uL (0.0-0.2); #Eosinphils 0.2 thou/uL (0.0-0.7); #Lymphocytes 2.8 thou/uL (1.20-3.40); #Monocytes 0.8 thou/uL (0.11-0.59); #Neutrophils 3.1 thou/uL (1.40-6.50); %Basophils 0.8 % (0.0-1.0); %Eosinophils 3.2 % (0.0-10.0); %Lymphocytes 40.6 % (21.0-51.0); %Monocytes 11.5 % (0.0-10.0); %Neutrophils 43.9 % (42.0-75.0); Hemoglobin 14.3 g/dL (14.0-18.0); Mean Corpuscular HGB CONC 33.4 g/dL (32.0-36.0); Mean Corpuscular Volume 92.7 fL (78.0-98.0); Mean Platelet Volume 7.3 fL (7.4-10.4); Platelet Count 210 thou/uL (130-400); RBC Distribution Width 11.8 % (11.5-14.5); Red Blood Cell (RBC) Count 4.62 mill/uL (4.70-6.10)
[2019-06-11 04:46] LABS: Anion Gap 11 mmol/L (10-20); BUN (Urea Nitrogen) 21 mg/dL (8.4-25.7); Calc. Creatinine Clearance 77 mL/min (70-130); Calcium 8.8 mg/dL (7.8-10.44); Carbon Dioxide 26 mmol/L (23-31); Cardiac Risk 6.5 (Less than 4.5); Chloride 106 mmol/L (98-107); Cholesterol 200 mg/dl (< 200 Desired); Estimated GFR-MDRD 46; Glucose 109 mg/dL (80-115); HDL Cholesterol 31 mg/dL (>60 Neg Risk); LDL Cholesterol, Calculated 132 mg/dL; Potassium 3.9 mmol/L (3.5-5.1); Sodium 139 mmol/L (136-145); Triglycerides 186 mg/dL (Less than 150)
[2019-06-11] MEDS: Enoxaparin Sodium 120 MG/0.8 ML SYRINGE SC SCH ×2 (05:24→16:56)
[2019-06-11] MEDS: Nitroglycerin 2% Ointment 1 INCH/1 GM Packet TOP SCH ×3 (06:12→20:39)
[2019-06-11] MEDS ORDERED: Communication Order-Pharmacy FS SCH ×2 (08:45→15:21)
--- NOTE | 2019-06-11 08:59 | PDOC.HOSPP ---
- Subjective Encounter Date: 06/11/19 Encounter Time: 11:30 Subjective: Patient without chest pain since in the ER last night. No SOB. No diaphoresis. - Objective Vital Signs & Weight: Vital Signs (12 hours) Temp Pulse Resp BP Pulse Ox 06/11/19 08:51 97.7 F 62 14 134/65 96 06/11/19 07:16 95 06/11/19 04:00 98.1 F 66 18 124/59 L 95 06/11/19 02:02 97 Weight Weight 247 lb 6.4 oz Result Diagrams: 06/11/19 03:51 06/11/19 03:51 Additional Labs: Accuchecks 06/11/19 06:13 POC Glucose 118 H Hospitalist ROS - Review of Systems Constitutional: denies: fever, chills Respiratory: denies: cough, dry, shortness of breath Cardiovascular: denies: chest pain, palpitations Gastrointestinal: denies: nausea, vomiting, abdominal pain - Medication Medications: Active Medications Generic Name Dose Route Start Last Admin Trade Name Freq PRN Reason Stop Dose Admin Atorvastatin Calcium 40 mg 06/10/19 21:00 06/10/19 20:59 Lipitor PO 40 mg HS MEGHNA Administration Enoxaparin Sodium 110 mg 06/11/19 05:00 06/11/19 05:24 Lovenox SC Not Given 0500,1700 MEGHNA Famotidine 20 mg 06/11/19 09:00 06/11/19 06:12 Pepcid SLOW IVP Not Given DAILY MEGHNA Famotidine 20 mg 06/11/19 09:00 06/11/19 06:12 Pepcid PO 20 mg DAILY MEGHNA Administration Sodium Chloride 1,000 mls @ 75 mls/hr 06/10/19 23:59 06/10/19 23:55 Normal Saline 0.9% IV 1,000 mls .[id number] MEGHNA Administration Nitroglycerin 0.5 inch 06/10/19 22:00 06/11/19 06:12 Nitro-Bid 2% Ointment TOP 0.5 inch Q8HR MEGHNA Administration Sodium Chloride 10 ml 06/10/19 21:00 06/10/19 20:59 Flush - Normal Saline IVF 10 ml Q12HR MEGHNA Administration - Exam General Appearance: NAD, awake alert ENT: moist mucosa Heart: RRR, no murmur, no gallops, no rubs Respiratory: CTAB, no wheezes, no rales, no ronchi Gastrointestinal: soft, non-tender, non-distended, normal bowel sounds Psychiatric: normal affect, normal behavior, A&O x 3 Hosp A/P (1) NSTEMI (non-ST elevated myocardial infarction) Code(s): I21.4 - NON-ST ELEVATION (NSTEMI) MYOCARDIAL INFARCTION Status: Acute (2) CKD (chronic kidney disease) stage 3, GFR 30-59 ml/min Code(s): N18.3 - CHRONIC KIDNEY DISEASE, STAGE 3 (MODERATE) Status: Chronic (3) HLD (hyperlipidemia) Code(s): E78.5 - HYPERLIPIDEMIA, UNSPECIFIED Status: Chronic (4) HTN (hypertension) Code(s): I10 - ESSENTIAL (PRIMARY) HYPERTENSION Status: Chronic (5) Hiatal hernia Code(s): K44.9 - DIAPHRAGMATIC HERNIA WITHOUT OBSTRUCTION OR GANGRENE Status: Chronic - Plan Patient on ASA, Lovenox Holding lisinopril/HCTZ, continue Amlodipine for BP control Cardiology consult, NPO, plan to take to cardiac cath today
[2019-06-11] MEDS ORDERED: Lactinex Tablet PO SCH (09:00)
[2019-06-11] MEDS ORDERED: Non-Formulary Item 1 EACH (Ascorbic Acid [Vitamin C] 1,000 MG) PO SCH (09:00)
[2019-06-11] MEDS ORDERED: GLUCOSAMINE PO SCH (09:00)
[2019-06-11] MEDS ORDERED: Ascorbic Acid 500 mg Chewable Tablet PO SCH (09:00)
[2019-06-11] MEDS ORDERED: Non-Formulary Item 1 EACH (Multivitamin [Multivitamins] 1 CAP) PO SCH (09:00)
[2019-06-11] MEDS ORDERED: Famotidine/PF 20 mg/2ml Vial SLOW IVP SCH (09:00)
[2019-06-11] MEDS ORDERED: Multivit, Therapeutic 1 TAB PO SCH (09:00)
[2019-06-11] MEDS ORDERED: Aspirin 81 mg Enteric Coated Tablet PO SCH (09:00)
[2019-06-11] MEDS ORDERED: Amlodipine 10 MG TAB PO SCH (09:00)
[2019-06-11] MEDS ORDERED: D3 PO SCH (09:00)
[2019-06-11] MEDS ORDERED: [UNRECOGNIZED DRUG - OTHER] PO SCH (09:00)
[2019-06-11] MEDS ORDERED: Non-Formulary Item 1 EACH (Lactobacillus Acidophilus [Probiotic] 1 CAPSULE) PO SCH (09:00)
[2019-06-11] MEDS ORDERED: Famotidine 20 MG TAB PO SCH (09:00)
[2019-06-11] MEDS ORDERED: Iopamidol 370 76% 100 ML VIAL ONE (09:38)
[2019-06-11] MEDS ORDERED: Nitroglycerin 100MG/250ML BOT 250 ML ONE (12:19)
[2019-06-11] MEDS ORDERED: Verapamil 5 MG/2 ML VIAL ONE (12:19)
[2019-06-11] MEDS ORDERED: Heparin 10,000 UNITS/1 ML VIAL ONE (12:19)
[2019-06-11] MEDS ORDERED: Midazolam HCl 2 mg/2 ml Vial ONE (12:30)
--- NOTE | 2019-06-11 12:49 | CON ---
DATE OF CONSULTATION: 06/11/2019 INDICATION FOR CONSULTATION: A 63-year-old patient with unstable angina type symptoms. He was seen already by my nurse practitioner. Please refer to the notes already dictated and my assessment of the patient. He did complain of some chest discomfort on a couple of occasions, and then becoming fatigue and increased shortness of breath. Yesterday, has some chest discomfort after he had done some mild exertion. He was admitted to the hospital. His cardiac enzymes are positive for non ST-segment elevation myocardial infarction. His troponin is up to 1.43. On admission, his troponin was 0.25, and it has continued to increased upwards. He has no chest pain at this time, but given his history and also the continued elevation of the cardiac enzymes, he was advised to undergo a cardiac catheterization. His LDL level also was elevated at 132, triglyceride level was 186. He has had chronic renal insufficiency with a creatinine of 1.54 today after being given IV fluids. I have explained to him the procedure and the risks to include bleeding, infection , possible myocardial infarction, CVA, renal insufficiency, allergic contrast reaction, even the possibility of . He understands and agrees to proceed. We will plan for a rather urgent cardiac catheterization to evaluate his coronary status. PHYSICAL EXAMINATION: GENERAL: Reveals a well-developed, well-nourished gentleman. VITAL SIGNS: Blood pressure is 120/57, heart rates in the 60s and shows a sinus rhythm, respiratory rate 17, O2 saturation 98%. He is afebrile. HEENT: Shows the head to be normocephalic and atraumatic. Carotid pulses are present. There were no bruits. CHEST: Clear to auscultation. CARDIOVASCULAR: Reveals regular rate and rhythm. There were no gross murmurs, heaves, thrills, bruits, or rubs. ABDOMEN: Soft, nontender. Positive bowel sounds are present. EXTREMITIES: Show no clubbing, cyanosis, or edema. Pedal pulses are present. Radial pulses present. NEUROLOGIC: He appears to be intact and noted above. IMPRESSION: 1. Cfs-[id number] elevation myocardial infarction with positive enzymes, which continue to increase. We will plan for urgent cardiac catheterization. 2. Hyperlipidemia. He has been placed on medications. He is taking Lipitor at this time 40 mg once a day. 3. Hypertension. He has been placed on Norvasc while here in the hospital. 4. Chronic renal insufficiency. We will continue to monitor this very carefully and use minimal contrast during the cardiac catheterization. Job ID: [id number] [email or web address]
[2019-06-11] MEDS ORDERED: Nitroglycerin 0.4 MG TAB (25 Tab Bottle) SL PRN (13:17)
[2019-06-11] MEDS ORDERED: Acetaminophen/Codeine 30-300mg Tablet PO PRN ×2 (13:17)
[2019-06-11] MEDS ORDERED: Sodium Chloride 0.9% 200 ML IV PRN (13:17)
[2019-06-11] MEDS: Sodium Chloride 0.9% 1,000 ML IV SCH (14:50)
[2019-06-11] MEDS ORDERED: Diazepam 5 MG TAB PO PRN (15:21)
--- NOTE | 2019-06-11 15:49 | CON ---
DATE OF CONSULTATION: 06/11/2019 REASON FOR CONSULTATION: Evaluate the patient for coronary artery bypass grafting. Chart reviewed/the patient examined/films reviewed. HISTORY OF PRESENT ILLNESS: Mr. Felix is a 63-year-old gentleman, who was at home working in his garden when he began to experience chest pain. He stopped working and the chest pain abated, but came back soon after standing up and beginning to walk around again. He decided to go to the [employer], where he has friends, who work in EMS. They listen to his history, took his blood pressure, which was systolic, was over 200, the diastolic was over 100 and decided he should be transported to the emergency department. While in the emergency department, he had EKG performed, which showed no ST-elevation. His peak troponin has been at 1.43. Creatinine is 1.54 today. He has no previous history of coronary artery disease or coronary events. He has had no coronary procedures. He does have a strong family history of coronary artery disease. He has no cerebrovascular, peripheral vascular, or abdominal aortic aneurysm history. PAST MEDICAL HISTORY: 1. Hypertension. 2. Dyslipidemia. PAST SURGICAL HISTORY: Tonsillectomy. CURRENT MEDICATIONS: At home; 1. Lipitor 10 mg at bedtime. 2. Vitamin C. 3. Amlodipine 10 mg daily. 4. Lisinopril/hydrochlorothiazide 20/12.5 two tablets daily. 5. Probiotic. 6. Glucosamine. ALLERGIES: NONE. SOCIAL HISTORY: He has never used tobacco products. He is retired and lives in [place]. He is . We had discussion with his on the phone as visitors have not been allowed in the hospital today. REVIEW OF SYSTEMS: A 10-point review of systems is performed and is negative except as above. PHYSICAL EXAMINATION: GENERAL: This is a well-developed, well-nourished male, resting comfortably on the telemetry unit. VITAL SIGNS: Height 6 feet and 1 inch and weight is 247 pounds, BSA is 2.40. Temperature is 97.6, pulse is 65 and regular, and blood pressure is 120/57. HEENT: Sclerae nonicteric. Pupils are equal and round bilaterally. NECK: Supple. He has no carotid bruits. CHEST: Clear bilaterally. HEART: Rhythm is regular without murmur. ABDOMEN: Soft and nontender with no masses. EXTREMITIES: No cyanosis, clubbing, or edema. VASCULAR: Palpable carotid, radial, femoral, dorsalis pedis, and posterior tibial pulses bilaterally. His catheter is right radial artery. Radial artery band is currently in place with good hemostasis. PSYCHIATRIC: He is awake, alert, and oriented to person, place, and time. LABORATORY DATA: Of note, his hemoglobin is 14.2 and platelet count is 210,000. Potassium 3.9, creatinine is 1.54 - it was 1.63 at admission. Peak troponin is 1.43. Triglycerides are 186 with a total cholesterol of 200, LDL is 132, and HDL is 131. ASSESSMENT AND PLAN: A 63-year-old gentleman with severe three-vessel disease and preserved left ventricular function. Risks, benefits, and options of coronary artery bypass grafting have been discussed with him in detail. Potential bypassable targets included LAD, two diagonals, high OM, and PDA. We will plan for surgery tomorrow. Job ID: [id number]
[2019-06-11] MEDS: Atorvastatin Calcium 40 MG TAB PO SCH (20:39)
[2019-06-12 05:14] LABS: Anion Gap 11 mmol/L (10-20); BUN (Urea Nitrogen) 18 mg/dL (8.4-25.7); Calc. Creatinine Clearance 84 mL/min (70-130); Calcium 8.4 mg/dL (7.8-10.44); Carbon Dioxide 23 mmol/L (23-31); Chloride 108 mmol/L (98-107); Estimated GFR-MDRD 51; Glucose 96 mg/dL (80-115); Potassium 3.9 mmol/L (3.5-5.1); Sodium 138 mmol/L (136-145)
[2019-06-12 05:22] LABS: Critical Call Chem Troponin I RESULT DECREASING; Troponin I 0.395 ng/mL (< 0.028)
[2019-06-12] MEDS: Enoxaparin Sodium 120 MG/0.8 ML SYRINGE SC SCH (05:43)
[2019-06-12] MEDS: Nitroglycerin 2% Ointment 1 INCH/1 GM Packet TOP SCH (05:45)
[2019-06-12] MEDS: Sodium Chloride 0.9% 1,000 ML IV SCH (05:45)
[2019-06-12] MEDS ORDERED: Midazolam HCl 2 mg/2 ml Vial ONE (06:22)
[2019-06-12] MEDS ORDERED: Fentanyl 100 MCG/2 ML VIAL ONE (06:22)
[2019-06-12] MEDS ORDERED: Phenylephrine 10 MG/ML VIAL ONE (06:22)
[2019-06-12] MEDS ORDERED: Dexmedetomidine 200 MCG/2 ML VIAL ONE (06:22)
[2019-06-12] MEDS ORDERED: Albumin 5% 500 ML ONE (06:38)
[2019-06-12] MEDS ORDERED: Heparin 10,000 UNITS/1 ML VIAL 30,000 UNITS in Sodium Chloride 0.9% 1,000 ML FS SCH (06:45)
[2019-06-12] MEDS ORDERED: CEFAZOLIN 2 GM in Premix Bag 1 BAG IVPB SCH (07:00)
--- NOTE | 2019-06-12 07:38 | PDOC.HOSPP ---
- Subjective Encounter Date: 06/12/19 Encounter Time: 17:00 Subjective: Patient back from CABG. Chest wall sore. No other complaints. - Objective Vital Signs & Weight: Vital Signs (12 hours) Pulse Resp BP Pulse Ox 06/12/19 04:00 66 16 144/65 H 96 06/12/19 02:28 95 06/11/19 20:00 96 Weight Weight 247 lb 6.4 oz Result Diagrams: 06/12/19 18:01 06/12/19 18:01 Hospitalist ROS - Review of Systems Constitutional: denies: fever, chills Respiratory: denies: cough, shortness of breath Cardiovascular: denies: palpitations Gastrointestinal: denies: nausea, vomiting, abdominal pain - Medication Medications: Active Medications Generic Name Dose Route Start Last Admin Trade Name Freq PRN Reason Stop Dose Admin Acidophilus 1 tab 06/11/19 09:00 06/11/19 10:17 Floranex PO 06/12/19 08:59 1 tab DAILY MEGHNA Administration Amlodipine Besylate 10 mg 06/11/19 09:00 06/11/19 09:15 Norvasc PO 06/12/19 08:59 10 mg DAILY MEGHNA Administration Ascorbic Acid 1,000 mg 06/11/19 09:00 06/11/19 09:17 Vitamin C PO 06/12/19 08:59 1,000 mg DAILY MEGHNA Administration Aspirin 81 mg 06/11/19 09:00 06/11/19 09:15 Ecotrin PO 06/12/19 08:59 81 mg DAILY MEGHNA Administration Atorvastatin Calcium 40 mg 06/10/19 21:00 06/11/19 20:39 Lipitor PO 06/12/19 08:59 40 mg HS MEGHNA Administration Enoxaparin Sodium 110 mg 06/11/19 05:00 06/12/19 05:43 Lovenox SC 06/12/19 08:59 Not Given 0500,1700 MEGHNA Famotidine 20 mg 06/11/19 09:00 06/11/19 06:12 Pepcid SLOW IVP 06/12/19 08:59 Not Given DAILY MEGHNA Famotidine 20 mg 06/11/19 09:00 06/11/19 06:12 Pepcid PO 06/12/19 08:59 20 mg DAILY MEGHNA Administration Sodium Chloride 1,000 mls @ 75 mls/hr 06/10/19 23:59 06/12/19 05:45 Normal Saline 0.9% IV 06/12/19 08:59 1,000 mls .[id number] MEGHNA Administration Multivitamins 1 tab 06/11/19 09:00 06/11/19 09:17 Theragran PO 06/12/19 08:59 1 tab DAILY MEGHNA Administration Nitroglycerin 0.5 inch 06/10/19 22:00 06/12/19 05:45 Nitro-Bid 2% Ointment TOP 06/12/19 08:59 0.5 inch Q8HR MEGHNA Administration Osteo Bi-Flex 0 each 06/11/19 09:00 06/11/19 10:22 PO 06/12/19 08:59 Not Given DAILY MEGHNA Sodium Chloride 10 ml 06/10/19 21:00 06/11/19 20:39 Flush - Normal Saline IVF 06/12/19 08:59 Not Given Q12HR MEGHNA - Exam General Appearance: NAD, awake alert ENT: moist mucosa Heart: RRR, no murmur, no gallops, no rubs Heart - other findings: sternotomy dressing c/d/i Respiratory: CTAB, no wheezes, no rales, no ronchi Gastrointestinal: soft, non-tender, non-distended, normal bowel sounds Extremities - other findings: dressing to LLE C/D/I Psychiatric: normal affect, normal behavior, A&O x 3 Hosp A/P (1) CAD (coronary artery disease) Code(s): I25.10 - ATHSCL HEART DISEASE OF [place] CORONARY ARTERY W/O ANG PCTRS Status: Acute Qualifiers: Coronary Disease-Associated Artery/Lesion type: [place] artery Plan: Severe multivessel disease (2) NSTEMI (non-ST elevated myocardial infarction) Code(s): I21.4 - NON-ST ELEVATION (NSTEMI) MYOCARDIAL INFARCTION Status: Acute (3) CKD (chronic kidney disease) stage 3, GFR 30-59 ml/min Code(s): N18.3 - CHRONIC KIDNEY DISEASE, STAGE 3 (MODERATE) Status: Chronic (4) HLD (hyperlipidemia) Code(s): E78.5 - HYPERLIPIDEMIA, UNSPECIFIED Status: Chronic (5) HTN (hypertension) Code(s): I10 - ESSENTIAL (PRIMARY) HYPERTENSION Status: Chronic (6) Hiatal hernia Code(s): K44.9 - DIAPHRAGMATIC HERNIA WITHOUT OBSTRUCTION OR GANGRENE Status: Chronic - Plan on Atorvastatin, post CABG care Cath with severe multivessel disease CABG done today, recovering in ICU
[2019-06-12] MEDS ORDERED: EPHEDRINE 25 MG/5 ML SYRINGE ONE (09:58)
[2019-06-12] MEDS ORDERED: Vecuronium 10 MG VIAL ONE (09:58)
[2019-06-12] MEDS ORDERED: PHENYLEPHRINE-NS 100 MCG/ML 10 ML SYRINGE ONE (09:58)
[2019-06-12] MEDS ORDERED: Rocuronium Bromide 10 MG/ML (10ML VIAL) ONE (09:58)
[2019-06-12] MEDS ORDERED: PROPOFOL 200 MG/20 ML VIAL ONE (09:58)
[2019-06-12] MEDS ORDERED: Lidocaine 1% PF 5 ML VIAL ONE (09:58)
[2019-06-12] MEDS ORDERED: Protamine Sulfate 250 MG/25 ML VIAL ONE (10:14)
[2019-06-12] MEDS ORDERED: Aminocaproic Acid 5 GM/20 ML VIAL ONE (10:14)
[2019-06-12] MEDS ORDERED: Heparin 5,000 UNITS/ML VIAL ONE (10:14)
[2019-06-12] MEDS ORDERED: Papaverine 60 MG/2 ML VIAL ONE (10:14)
[2019-06-12] MEDS ORDERED: Heparin 30,000 units/30 ml VIAL ONE (10:14)
[2019-06-12] MEDS ORDERED: Cardioplegic Soln 1,000 ML BAG ONE (10:14)
[2019-06-12] MEDS ORDERED: Thrombin 5000 UNITS/5 ML VIAL ONE (10:14)
[2019-06-12] MEDS ORDERED: Lidocaine 2% PF 5 ML VIAL ONE (10:14)
[2019-06-12] MEDS ORDERED: Potassium Chloride 60 MEQ/30 ML VIAL ONE (10:14)
[2019-06-12] MEDS ORDERED: Calcium Chloride 1 GM/10 ML Abboject SYRINGE ONE (10:14)
[2019-06-12] MEDS ORDERED: Magnesium Sulfate 1 GM/2 ML VIAL ONE (10:14)
[2019-06-12] MEDS ORDERED: Sodium Bicarb 50 MEQ/50 ML Abboject 8.4% SYRINGE ONE (10:14)
[2019-06-12] MEDS ORDERED: Bupivacaine PF 0.5% 30 ML VIAL ONE (10:44)
[2019-06-12] MEDS ORDERED: Dexamethasone 4 mg/ml Vial ONE (10:44)
[2019-06-12] MEDS ORDERED: Insulin Regular 300 UNITS/3 ML VIAL ONE (11:03)
[2019-06-12] MEDS ORDERED: traMADol HCl 50 MG TAB PO PRN (12:25)
[2019-06-12] MEDS ORDERED: Bisacodyl 5 MG TAB PO PRN (12:25)
[2019-06-12] MEDS ORDERED: Fentanyl 100 MCG/2 ML VIAL SLOW IVP PRN (12:25)
[2019-06-12] MEDS ORDERED: Guaifenesin DM 100-10/5 ML UDCUP PO PRN (12:25)
[2019-06-12] MEDS ORDERED: Mag-Al 1200 mg/1200 mg/30 ML UDCUP PO PRN (12:25)
[2019-06-12] MEDS ORDERED: Hetastarch 6% 500 ML 500 ML IVPB PRN (12:25)
[2019-06-12] MEDS ORDERED: Ondansetron PF 4 MG/2 ML Vial IVP PRN (12:25)
[2019-06-12] MEDS ORDERED: Phenylephrine 10 MG/NS 250 ML 250 ML IVPB PRN (12:25)
[2019-06-12] MEDS ORDERED: D5 1/2 NS w/20 mEq KCL 1,000 ML IV SCH (12:25)
[2019-06-12] MEDS ORDERED: Nitroglycerin 50 MG/250 ML BOT 250 ML IVPB PRN (12:25)
[2019-06-12] MEDS ORDERED: Magnesium 2 GM/50 ML 2 GM in Premix Bag 1 BAG IVPB SCH (12:25)
[2019-06-12] MEDS ORDERED: Potassium Chloride 20 MEQ/100 ML PREMIX BAG IVPB PRN (12:25)
[2019-06-12] MEDS ORDERED: Bisacodyl 10 MG SUPP PR PRN (12:25)
[2019-06-12] MEDS ORDERED: Acetaminophen 325 MG TAB PO PRN (12:25)
[2019-06-12] MEDS ORDERED: hydrALAZINE 20 MG/ML VIAL SLOW IVP PRN (12:25)
[2019-06-12] MEDS ORDERED: Morphine 2 MG/ML SYRINGE SLOW IVP PRN (12:25)
[2019-06-12] MEDS ORDERED: Dextrose 5% in Water 1,000 ML IV PRN (12:34)
[2019-06-12] MEDS ORDERED: HUMULIN R 100 UNITS in Sodium Chloride 0.9% 100 ML IVPB SCH (12:34)
[2019-06-12] MEDS ORDERED: Dextrose 50% Abboject 50 ML SYRINGE SLOW IVP PRN (12:34)
[2019-06-12 12:48] LABS: Actual Bicarbonate (HCO3a) 23.3 mEq/L (22-28); Base Excess (BEa) -2.7 mEq/L (-2.0 to +3.0); CO2 Tension 45.3 mmHg (35.0-45.0); Calcium, Ionized 1.09 mmol/L (1.12-1.30); Hemoglobin (Hb) 13.1 g/dL (14.0-18.0); O2 Tension (PaO2) 63.6 mmHg (> 80.0); Potassium - ABG Lab 4.35 mmol/L (3.70-5.30); pH, Arterial 7.33 (7.35-7.45)
[2019-06-12 12:49] LABS: Puncture Site ALINE
[2019-06-12 12:50] LABS: ALV-art Gradient 307.575 (0-20)
--- NOTE | 2019-06-12 12:55 | RAD ---
CHEST 1 VIEW: HISTORY: Heart surgery. COMPARISON: 06/10/2019. FINDINGS: Cardiac silhouette is magnified and enlarged. There is widening of the upper mediastinum. Radiopaque mediastinal drain in place. Interval postoperative changes of the mediastinum. The tip of an endotracheal catheter overlies the t horacic inlet. Tip of a right subclavian central venous catheter overlies the superior vena cava. Atelectasis evident at the left lung base. Lung markings are favored to extend to the lateral chest w all, arguing against a pneumothorax. Postoperative changes of the cervical spine partially visualized. IMPRESSION : 1. Marked widening of the upper mediastinum, likely related to recent surgery. 2. Lines and tubes as detailed above. Findings were called to nursing personnel in the CCU at 1246 hours. Code CR. Transcribed Date/Time: 06/12/2019 1:39 PM
[2019-06-12] MEDS: Insulin Regular 300 UNITS/3 ML VIAL SC PRN (12:59)
[2019-06-12 13:05] LABS: #Eosinphils 0.1 thou/uL (0.0-0.7); #Lymphocytes 1.2 thou/uL (1.20-3.40); #Monocytes 1.2 thou/uL (0.11-0.59); #Neutrophils 13.8 thou/uL (1.40-6.50); %Basophils 0.2 % (0.0-1.0); %Eosinophils 0.5 % (0.0-10.0); %Lymphocytes 7.5 % (21.0-51.0); %Monocytes 7.2 % (0.0-10.0); %Neutrophils 84.6 % (42.0-75.0); Mean Corpuscular HGB CONC 34.6 g/dL (32.0-36.0); Mean Corpuscular Hemoglobin 32.1 pg (27.0-31.0); Mean Corpuscular Volume 92.7 fL (78.0-98.0); Mean Platelet Volume 7.2 fL (7.4-10.4); Platelet Count 145 thou/uL (130-400); RBC Distribution Width 11.8 % (11.5-14.5); Red Blood Cell (RBC) Count 4.06 mill/uL (4.70-6.10); White Blood Cell (WBC) Count 16.4 thou/uL (4.8-10.8)
[2019-06-12 13:11] LABS: INR-International Normal Ratio 1.2; Prothrombin Time 15.4 SEC (12.0-14.7)
--- NOTE | 2019-06-12 13:15 | OP ---
DATE OF PROCEDURE: 06/12/2019 PREOPERATIVE DIAGNOSES: Coronary artery disease/hypertension/dyslipidemia/status post [id number] myocardial infarction. POSTOPERATIVE DIAGNOSES: Coronary artery disease/hypertension/dyslipidemia/status post [id number] myocardial infarction. PROCEDURES PERFORMED: Coronary artery bypass grafting x5: 1. Left internal mammary artery to 2.0 mm proximal LAD-good conduit and target. 2. Reverse saphenous vein to 2.0 mm obtuse marginal 1-good conduit and target. 3. Reverse saphenous vein to 1.5 mm diffusely diseased PDA. 4. Reverse saphenous vein to 2.0 mm D1 in sequence with 2.0 mm D2. ANESTHESIA: General endotracheal, Dr. Neftaly Rankin. PUMP TIME: 81 minutes. CROSSCLAMP TIME: 49 minutes. LOW-CORE TEMPERATURE: 34 degrees Celsius. LEAD INGOT MOLDER: Vangie Watt. DRAINS: 24-Omani chest tubes x2. DRIPS: None. TRANSFUSIONS: None. DESCRIPTION OF PROCEDURE: After consent was obtained, the patient was brought to the operating room and placed in supine position on the operating room table. Appropriate central line and monitors were placed, and general endotracheal anesthesia was induced. Chest, abdomen, and legs were prepped and draped in usual sterile fashion. Greater saphenous vein was harvested from the left lower extremity utilizing an endoscopic technique. Wounds were irrigated and closed in layers. Median sternotomy was performed. Left internal mammary artery was harvested as a pedicle graft. The patient was systemically heparinized. Distal pedicle was divided and infused with papaverine. Thymic fat and pericardium were divided with electrocautery. Pericardial stay sutures were placed. Aortic and atrial cannulation was performed. After adequate heparinization, retrograde prime was performed. The patient was then placed on cardiopulmonary bypass. Distal targets were marked. Aortic cross-clamp was applied, and antegrade sanguineous cardioplegic arrest was obtained. 1 L of antegrade cold [place] cardioplegia was given. Topical cold solution was used. Reverse saphenous vein was anastomosed to the PDA in end-to-side fashion with running 7-0 Prolene suture. Anastomosis was tested and was hemostatic. Reverse saphenous vein was anastomosed to the first OM in end-to-side fashion with running 7-0 Prolene suture. Anastomosis was tested and was hemostatic. Reverse saphenous vein was anastomosed in sequence to the D1 and D2. Ccyy-ru-gawe anastomosis D1 and end-to-side anastomosis D2 were performed. Anastomoses were inspected for hemostasis, which was good. Mammary artery was brought through a window in the pericardium and anastomosed in an end-to-side fashion with running 7-0 Prolene suture to the proximal LAD. On release of mammary clamps, good hooding of anastomosis and good distal flow. Pedicle was secured with interrupted 6-0 Prolene suture. Cross-clamp was removed and partial occluding clamp was placed. Saphenous veins to the PDA and OM were anastomosed to the aortic root. Saphenous vein to the diagonal was anastomosed to the sidewall of the OM graft at the luna. Partial occluding clamp was removed and graft was de-aired. Anastomoses were inspected for hemostasis, which was good. The patient was warmed and weaned from cardiopulmonary bypass. After resumption of sinus rhythm, good hemodynamics, temperature greater than 36.5, bypass was discontinued. Protamine was administered. Decannulation was performed, and a pursestring suture secured. 24-Omani chest tubes were placed in mediastinum. Vancomycin paste was placed on sternal edges. After adequate hemostasis had been obtained, a Robicsek wire was placed on the right manubrial sternal junction. Sternum was then closed with #7 wire, three in the manubrium and one in the distal sternum. Four zip ties were placed in the body of the sternum. The wires were tightened and buried. Zip ties were tightened and cut, platelet rich plasma had been placed on the sternal edges. A peristernal block was performed with 0.5% Marcaine mixed with Decadron. Wounds were irrigated, treated with platelet poor plasma and closed in multiple layers. Needle, sponge, and instrument counts were all reported as correct at the end of the procedure. The patient tolerated the procedure well, was transferred to the intensive care unit in stable, but critical condition. Job ID: [id number]
[2019-06-12 13:28] LABS: Anion Gap 10 mmol/L (10-20); BUN (Urea Nitrogen) 19 mg/dL (8.4-25.7); Calc. Creatinine Clearance 78 mL/min (70-130); Calcium 7.7 mg/dL (7.8-10.44); Carbon Dioxide 23 mmol/L (23-31); Chloride 112 mmol/L (98-107); Estimated GFR-MDRD 46; Glucose 133 mg/dL (80-115); Potassium 4.4 mmol/L (3.5-5.1); Sodium 141 mmol/L (136-145)
[2019-06-12] MEDS: CEFAZOLIN 2 GM in Premix Bag 1 BAG IVPB SCH ×2 (13:41→22:05)
[2019-06-12] MEDS: Fentanyl 100 MCG/2 ML VIAL SLOW IVP PRN ×2 (13:42→22:37)
--- NOTE | 2019-06-12 15:12 | EKG ---
Test Reason : Blood Pressure : / mmHG Vent. Rate : 057 BPM Atrial Rate : 057 BPM P-R Int : 170 ms QRS Dur : 110 ms QT Int : 430 ms P-R-T Axes : 061 045 032 degrees QTc Int : 418 ms Sinus bradycardia Otherwise normal ECG Confirmed by VASHIT GALEANO DO ([id number]), proposal editor GRABIEL MORA ([id number]) on 06/12/2019 3:11:59 PM Referred By: Confirmed By:VASHTI GALEANO DO
[2019-06-12 16:55] LABS: Actual Bicarbonate (HCO3a) 17.4 mEq/L (22-28); Base Excess (BEa) -4.8 mEq/L (-2.0 to +3.0); Calcium, Ionized 1.12 mmol/L (1.12-1.30); Carboxyhemoglobin (COHb) 0.7 gm% (0.0-3.0); Hemoglobin (Hb) 13.4 g/dL (14.0-18.0); O2 Tension (PaO2) 126.1 mmHg (> 80.0); Potassium - ABG Lab 4.32 mmol/L (3.70-5.30); pH, Arterial 7.46 (7.35-7.45)
[2019-06-12 16:56] LABS: CO2 Tension 25.2 mmHg (35.0-45.0); Puncture Site ALINE
--- NOTE | 2019-06-12 17:26 | PDOC.CPN ---
- Subjective Date: 06/12/19 Time: 14:00 - Objective Allergies/Adverse Reactions: Allergies Allergy/AdvReac Type Severity Reaction Status Date / Time No Known Allergies Allergy Verified 05/09/18 11:39 Visit Medications: Current Medications Acetaminophen (Tylenol) 650 mg PO Q6H PRN PRN Reason: Headache/Fever Or Mild Pain Al Hydroxide/Mg Hydroxide (Maalox) 30 ml PO Q4H PRN PRN Reason: Indigestion Albumin Human (Albumin 5%) 12.5 gm IVPB Q6H PRN PRN Reason: To Maintain SBP> 90 mmHG Stop: 06/13/19 12:26 Albumin Human (Albumin 5%) 25 gm IVPB Q6H PRN PRN Reason: To Maintain SBP > 90 mmHG Stop: 06/13/19 12:26 Albuterol/Ipratropium (Duoneb) 3 ml NEB Q6H PRN PRN Reason: SHORTNESS OF BREATH Aspirin (Aspirin) 325 mg PO DAILY MEGHNA Atorvastatin Calcium (Lipitor) 20 mg PO HS MEGHNA Bisacodyl (Dulcolax) 10 mg PO Q12H PRN PRN Reason: Constipation Bisacodyl (Dulcolax) 10 mg NV Q12H PRN PRN Reason: Constipation Dextrose/Water (Dextrose 50%) 25 gm SLOW IVP PRN PRN PRN Reason: PER HYPOGLYCEMIC PROTOCOL Famotidine (Pepcid) 20 mg SLOW IVP Q12HR [facility] Fentanyl (Sublimaze) 25 mcg SLOW IVP Q2H PRN PRN Reason: Moderate Pain (4-6) Stop: 06/14/19 12:06 Fentanyl (Sublimaze) 50 mcg SLOW IVP Q2H PRN PRN Reason: Severe Pain (7-10) Stop: 06/14/19 12:06 Last Admin: 06/12/19 13:42 Dose: 50 mcg Glucagon (Glucagon) 1 mg SC PRN PRN PRN Reason: PER HYPOGLYCEMIC PROTOCOL Guaifenesin/Dextromethorphan (Robitussin Dm) 15 ml PO Q4H PRN PRN Reason: Cough Hydralazine HCl (Apresoline) 10 mg SLOW IVP Q6H PRN PRN Reason: To Maintain SBP< 140mmHG Cefazolin Sodium/Dextrose 2 gm (/ Device) 50 mls @ 100 mls/hr IVPB Q8H [facility] Stop: 06/13/19 06:29 Last Admin: 06/12/19 13:41 Dose: 50 mls Potassium Chloride/Dextrose/Sod Cl (D5 1/2 Ns W/20 Meq Kcl) 1,000 mls @ 40 mls/ hr IV .Q24H [facility] Last Admin: 06/12/19 13:00 Dose: 1,000 mls Hetastarch/Sodium Chloride (Hespan) 500 mls @ 0 mls/hr IVPB PRN PRN PRN Reason: To Maintain SBP > 90mmHg Stop: 06/13/19 12:06 Magnesium Sulfate 2 gm/ Device 50 mls @ 50 mls/hr IVPB ONE [facility] Stop: 06/12/19 18:00 Magnesium Sulfate 2 gm/ Device 50 mls @ 50 mls/hr IVPB QAM [facility] Stop: 06/14/19 09:59 Nitroglycerin/Dextrose (Nitroglycerin 50 Mg/250 Ml Bot) 250 mls @ 0 mls/hr IVPB PRN PRN; Protocol PRN Reason: To Maintain SBP< 140mmHG Phenylephrine HCl (Martin-Synephrine) 250 mls @ 0 mls/hr IVPB PRN PRN; Protocol PRN Reason: To maintain SBP > 90 mmHG Insulin Human Regular 100 (units/ Sodium Chloride) 101 mls @ 0 mls/hr IVPB INF [facility]; Protocol Last Admin: 06/12/19 16:55 Dose: 101 mls Dextrose/Water (D5w) 1,000 mls @ 0 mls/hr IV INF PRN PRN Reason: PRN HYPOGLYCEMIC PROTOCOL Insulin Glargine (Lantus) 0 units SC ONE PRN PRN Reason: PER OPEN HEART ORDERS Stop: 06/13/19 12:35 Insulin Human Regular (Humulin R) 0 units SC Q4H PRN; Protocol PRN Reason: POST OP SLIDING SCALE Last Admin: 06/12/19 12:59 Dose: 2 unit Morphine Sulfate (Morphine) 2 mg SLOW IVP Q15MIN PRN PRN Reason: Severe Pain (7-10) Last Admin: 06/12/19 13:25 Dose: 2 mg Ondansetron HCl (Zofran) 4 mg IVP Q6H PRN PRN Reason: Nausea/Vomiting Potassium Chloride (Kcl) 20 meq IVPB PRN PRN PRN Reason: K level </= 4.0 Sodium Chloride (Flush - Normal Saline) 10 ml IVF Q12HR [facility] Tramadol HCl (Ultram) 50 mg PO Q6H PRN PRN Reason: Moderate Pain (4-6) Tramadol HCl (Ultram) 100 mg PO Q6H PRN PRN Reason: Severe Pain (7-10) Vital Signs & Weight: Vital Signs Temp Pulse BP Pulse Ox 06/12/19 16:30 69 06/12/19 15:00 69 114/61 06/12/19 12:30 72 122/55 L 96 06/12/19 12:25 98.7 F 100 06/12/19 08:52 96 Weight 247 lb 6.4 oz - Quality Measures Condition: Myocardial Infarction CV meds: Beta Aleshia: Yes, IGNACIO/ARB: Yes, Statin: Yes, ASA: Yes - Physical Exam Neck: supple neck Cardiac: regular rate and rhythm Lungs: clear to auscultation Neuro: grossly intact Abdomen: unremarkable Extremities: no edema - Labs Result Diagrams: 06/12/19 12:45 06/12/19 12:45 Troponin/CKMB CK-MB (CK-2) 5.3 ng/mL (0-6.6) 06/10/19 14:22 Troponin I 0.395 ng/mL (< 0.028) H* 06/12/19 04:24 - Telemetry Sinus rhythms and dysrhythmias: sinus rhythm - Assessment/Plan Assessment/Plan: 1. CAD. s/p CABG. Doing well. Still intubated but awake. 2. Dyslipidemia. Statins when taking po. 3. HTN. stable. 4. NSTEMI. Suspect no myocardial damage. Mild increase in T.I. 5. CKD. Follow creat. closely.
[2019-06-12] MEDS: traMADol HCl 50 MG TAB PO PRN (17:40)
[2019-06-12 18:10] LABS: Hemoglobin 13.6 g/dL (14.0-18.0)
[2019-06-12 18:23] LABS: Potassium 4.1 mmol/L (3.5-5.1)
[2019-06-12] MEDS: Atorvastatin Calcium 20 MG TAB PO SCH (20:18)
[2019-06-12] MEDS ORDERED: Famotidine/PF 20 mg/2ml Vial SLOW IVP SCH (21:00)
--- NOTE | 2019-06-12 21:02 | EKG ---
Test Reason : POST CABG Blood Pressure : / mmHG Vent. Rate : 067 BPM Atrial Rate : 067 BPM P-R Int : 174 ms QRS Dur : 102 ms QT Int : 390 ms P-R-T Axes : 076 033 011 degrees QTc Int : 412 ms Normal sinus rhythm Low voltage QRS Nonspecific ST abnormality Abnormal ECG When compared with ECG of 10-JUN-2019 13:25, (Unconfirmed) QRS voltage has decreased ST more depressed in Anterior leads Confirmed by Rinku MARIANO ([id number]) on 06/12/2019 9:01:29 PM Referred By: Caleb SANCHEZ Confirmed By:Rinku MARINAO
[2019-06-13] MEDS: Insulin Regular 300 UNITS/3 ML VIAL SC PRN ×2 (00:09→04:35)
[2019-06-13] MEDS: traMADol HCl 50 MG TAB PO PRN ×2 (01:31→08:56)
[2019-06-13] MEDS: Fentanyl 100 MCG/2 ML VIAL SLOW IVP PRN ×5 (03:22→18:10)
[2019-06-13 04:56] LABS: #Lymphocytes 0.7 thou/uL (1.20-3.40); #Monocytes 1.6 thou/uL (0.11-0.59); #Neutrophils 12.1 thou/uL (1.40-6.50); %Eosinophils 0.1 % (0.0-10.0); %Lymphocytes 4.9 % (21.0-51.0); %Monocytes 11.2 % (0.0-10.0); %Neutrophils 83.7 % (42.0-75.0); Hemoglobin 13.1 g/dL (14.0-18.0); Mean Corpuscular HGB CONC 33.9 g/dL (32.0-36.0); Mean Corpuscular Hemoglobin 31.5 pg (27.0-31.0); Mean Corpuscular Volume 92.9 fL (78.0-98.0); Mean Platelet Volume 7.4 fL (7.4-10.4); Platelet Count 177 thou/uL (130-400); RBC Distribution Width 11.9 % (11.5-14.5); Red Blood Cell (RBC) Count 4.14 mill/uL (4.70-6.10); White Blood Cell (WBC) Count 14.4 thou/uL (4.8-10.8)
[2019-06-13 05:23] LABS: Anion Gap 14 mmol/L (10-20); BUN (Urea Nitrogen) 21 mg/dL (8.4-25.7); Calc. Creatinine Clearance 81 mL/min (70-130); Calcium 7.9 mg/dL (7.8-10.44); Carbon Dioxide 21 mmol/L (23-31); Chloride 110 mmol/L (98-107); Estimated GFR-MDRD 49; Glucose 150 mg/dL (80-115); Potassium 4.1 mmol/L (3.5-5.1); Sodium 141 mmol/L (136-145)
[2019-06-13] MEDS: CEFAZOLIN 2 GM in Premix Bag 1 BAG IVPB SCH (05:26)
--- NOTE | 2019-06-13 07:42 | RAD ---
PORTABLE CHEST 1 VIEW: DATE: 06/13/2019. TIME: 5:23 AM. HISTORY: Post open heart surgery. COMPARISON: Previous day. FINDINGS/IMPRESSION: There has been interval removal of the endotracheal tube and mediastinal drain since the previous day 's exam. The heart size is stable. No lobar consolidation, pneumothoraces, or large effusions are s een. POS: [facility]
[2019-06-13] MEDS ORDERED: Bisacodyl 10 MG SUPP PR PRN (08:01)
[2019-06-13] MEDS ORDERED: Mag-Al 1200 mg/1200 mg/30 ML UDCUP PO PRN (08:01)
[2019-06-13] MEDS ORDERED: Acetaminophen 325 MG TAB PO PRN (08:01)
[2019-06-13] MEDS ORDERED: Artificial Tears 18 DROP/0.9 ML EA EYE PRN (08:01)
[2019-06-13] MEDS ORDERED: Bisacodyl 5 MG TAB PO PRN (08:01)
[2019-06-13] MEDS ORDERED: diphenhydrAMINE 25 MG CAP PO PRN (08:01)
[2019-06-13] MEDS ORDERED: Mineral Oil ENEMA PR PRN (08:01)
[2019-06-13] MEDS ORDERED: Zolpidem Tartrate 5 MG TAB PO PRN (08:01)
[2019-06-13] MEDS ORDERED: Guaifenesin DM 100-10/5 ML UDCUP PO PRN (08:01)
[2019-06-13] MEDS ORDERED: Ondansetron PF 4 MG/2 ML Vial IVP PRN (08:01)
[2019-06-13] MEDS ORDERED: Nitroglycerin 0.4 MG TAB (25 Tab Bottle) SL PRN (08:01)
[2019-06-13] MEDS ORDERED: Fentanyl 100 MCG/2 ML VIAL SLOW IVP PRN (08:01)
[2019-06-13] MEDS: Aspirin 325 mg Enteric Coated Tablet PO SCH (08:55)
[2019-06-13] MEDS: Potassium Chloride 10 MEQ TAB PO SCH (08:56)
[2019-06-13] MEDS: Furosemide 40 MG TAB PO SCH (08:56)
[2019-06-13] MEDS ORDERED: Magnesium 2 GM/50 ML 2 GM in Premix Bag 1 BAG IVPB SCH (09:00)
[2019-06-13] MEDS ORDERED: Famotidine 20 MG TAB PO SCH (09:00)
[2019-06-13] MEDS ORDERED: Aspirin 325 MG TAB PO SCH (09:00)
[2019-06-13] MEDS ORDERED: Metoprolol Tartrate 25 MG TAB PO SCH (09:00)
--- NOTE | 2019-06-13 13:27 | PDOC.CPN ---
- Subjective Date: 06/13/19 Time: 13:38 Interval history: The pt seen and examined. No overnight events. No cardiac complaints. - Objective Allergies/Adverse Reactions: Allergies Allergy/AdvReac Type Severity Reaction Status Date / Time No Known Allergies Allergy Verified 05/09/18 11:39 Visit Medications: Current Medications Acetaminophen (Tylenol) 650 mg PO Q6H PRN PRN Reason: Headache/Fever or Pain Al Hydroxide/Mg Hydroxide (Maalox) 30 ml PO Q4H PRN PRN Reason: Indigestion Albuterol/Ipratropium (Duoneb) 3 ml NEB [id number] PRN PRN Reason: Respiratory Distress Artificial Tears (Tears Naturale) 0 drop EA EYE PRN PRN PRN Reason: Dry Eyes Aspirin (Ecotrin) 325 mg PO DAILY [facility] Last Admin: 06/13/19 08:55 Dose: 325 mg Atorvastatin Calcium (Lipitor) 20 mg PO HS [facility] Last Admin: 06/12/19 20:18 Dose: 20 mg Bisacodyl (Dulcolax) 10 mg PO Q12H PRN PRN Reason: Constipation Bisacodyl (Dulcolax) 10 mg DC Q12H PRN PRN Reason: Constipation Diphenhydramine HCl (Benadryl) 25 mg PO Q6H PRN PRN Reason: Itching & Insomnia or Humberto Dominguez Fentanyl (Sublimaze) 25 mcg SLOW IVP Q2H PRN PRN Reason: Moderate breakthrough pain Last Admin: 06/13/19 11:09 Dose: 25 mcg Fentanyl (Sublimaze) 50 mcg SLOW IVP Q2H PRN PRN Reason: Severe breakthrough pain Furosemide (Lasix) 40 mg PO DAILY [facility] Last Admin: 06/13/19 08:56 Dose: 40 mg Guaifenesin/Dextromethorphan (Robitussin Dm) 15 ml PO Q4H PRN PRN Reason: Cough Metoprolol Tartrate (Lopressor) 6.25 mg PO BID [facility] Last Admin: 06/13/19 08:56 Dose: 6.25 mg Mineral Oil (Fleet Mineral Oil) 133 ml DC DAILYPRN PRN PRN Reason: Constipation Nitroglycerin (Nitrostat) 0.4 mg SL Q5MIN PRN PRN Reason: Chest Pain Ondansetron HCl (Zofran) 4 mg IVP Q6H PRN PRN Reason: Nausea/Vomiting Pantoprazole Sodium (Protonix) 40 mg PO DAILY [facility] Last Admin: 06/13/19 08:56 Dose: 40 mg Potassium Chloride (Klor-Con 10) 10 meq PO QAM-WM [facility] Last Admin: 06/13/19 08:56 Dose: 10 meq Sodium Chloride (Flush - Normal Saline) 10 ml IVF Q12HR [facility] Last Admin: 06/13/19 08:58 Dose: 10 ml Sodium Chloride (Flush - Normal Saline) 10 ml IVF PRN PRN PRN Reason: Saline Flush Tramadol HCl (Ultram) 50 mg PO Q6H PRN PRN Reason: Moderate Pain (4-6) Tramadol HCl (Ultram) 100 mg PO Q6H PRN PRN Reason: Severe Pain (7-10) Last Admin: 06/13/19 08:56 Dose: 100 mg Zolpidem Tartrate (Ambien) 5 mg PO HSPRN PRN PRN Reason: Insomnia Vital Signs & Weight: Vital Signs Temp Pulse Pulse Pulse Resp BP BP 06/13/19 11:02 97.9 F 78 18 06/13/19 10:14 93 85 157/74 H 135/66 06/13/19 08:47 98.2 F 79 18 06/13/19 04:00 98.4 F BP Pulse Ox Pulse Ox Pulse Ox 06/13/19 11:02 129/93 H 93 L 06/13/19 10:14 95 94 L 06/13/19 08:47 143/76 H 06/13/19 04:00 Weight 247 lb 6.4 oz - Quality Measures Condition: Myocardial Infarction CV meds: Beta Aleshia: Yes, IGNACIO/ARB: Yes, Statin: Yes, ASA: Yes - Physical Exam General: alert & oriented x3 HEENT: mucus membranes moist Neck: supple neck Cardiac: regular rate and rhythm, S1/S2 Lungs: clear to auscultation, decreased breath sounds Neuro: cranial nerve 2-12 intact - Labs Result Diagrams: 06/13/19 04:29 06/13/19 04:29 Troponin/CKMB CK-MB (CK-2) 5.3 ng/mL (0-6.6) 06/10/19 14:22 Troponin I 0.395 ng/mL (< 0.028) H* 03/26/20 04:24 - Telemetry Sinus rhythms and dysrhythmias: sinus rhythm - Assessment/Plan Assessment/Plan: 1. CAD with s/p CABG x5 on 06/12/2019 with PERDOMO-LAD, RSV-OM1, RSV-PDA, RSV-Diag 1 and Diag 2 - Doing well. On Metoprolol, ASA, and Statin; 2. Dyslipidemia - Statin. 3. HTN - stable. 4. NSTEMI. Suspect no myocardial damage. Mild increase in T.I. 5. CKD stage 3 - Follow creat. closely. 6. Hiatal hernia MAR reviewed Pt. seen and eval. by me. I agree with the A/P by the INSTRUMENT TECHNICIAN APPRENTICE.his only c/o to me was of post sternotomy pain. Chest clear. RRR. No edema. Doing well s/p CABG.
--- NOTE | 2019-06-13 13:30 | PDOC.HOSPP ---
- Subjective Encounter Date: 06/13/19 Encounter Time: 12:30 Subjective: pt up in chair complains of mild incision pain. - Objective Vital Signs & Weight: Vital Signs (12 hours) Temp Pulse Pulse Pulse Resp BP BP 06/13/19 11:02 97.9 F 78 18 06/13/19 10:14 93 85 157/74 H 135/66 06/13/19 08:47 98.2 F 79 18 06/13/19 04:00 98.4 F BP Pulse Ox Pulse Ox Pulse Ox 06/13/19 11:02 129/93 H 93 L 06/13/19 10:14 95 94 L 06/13/19 08:47 143/76 H 06/13/19 04:00 Weight Weight 247 lb 6.4 oz Most Recent Monitor Data Heart Rate from ECG 97 NIBP 115/81 NIBP BP-Mean 92 Respiration from ECG 23 SpO2 92 I&O: 06/12/19 06/13/19 06/14/19 06:59 06:59 06:59 Intake Total 1585 Output Total 1550 Balance 35 Result Diagrams: 06/13/19 04:29 06/13/19 04:29 Additional Labs: Accuchecks 06/13/19 06/13/19 06/12/19 04:38 00:10 20:32 POC Glucose 148 H 147 H 137 H 06/12/19 06/12/19 06/12/19 19:20 18:39 16:55 POC Glucose 149 H 152 H 172 H Hospitalist ROS - Review of Systems Cardiovascular: reports: other (incisional pain) Gastrointestinal: denies: nausea, vomiting, abdominal pain, diarrhea, constipation, melena, hematochezia, other Genitourinary: denies: dysuria, frequency, incontinence, hematuria, retention, other Musculoskeletal: denies: neck pain, shoulder pain, arm pain, back pain, hand pain, leg pain, foot pain, other - Medication Medications: Active Medications Generic Name Dose Route Start Last Admin Trade Name Freq PRN Reason Stop Dose Admin Aspirin 325 mg 06/13/19 09:00 06/13/19 08:55 Ecotrin PO 325 mg DAILY MEGHNA Administration Atorvastatin Calcium 20 mg 06/12/19 21:00 06/12/19 20:18 Lipitor PO 20 mg HS MEGHNA Administration Fentanyl 25 mcg 06/13/19 08:01 06/13/19 11:09 Sublimaze SLOW IVP 25 mcg Q2H PRN Administration Moderate breakthrough pain Furosemide 40 mg 06/13/19 09:00 06/13/19 08:56 Lasix PO 40 mg DAILY MEGHNA Administration Metoprolol Tartrate 6.25 mg 06/13/19 09:00 06/13/19 08:56 Lopressor PO 6.25 mg BID MEGHNA Administration Pantoprazole Sodium 40 mg 06/13/19 09:00 06/13/19 08:56 Protonix PO 40 mg DAILY MEGHNA Administration Potassium Chloride 10 meq 06/13/19 08:00 06/13/19 08:56 Klor-Con 10 PO 10 meq QAM-WM [facility]GHNA Administration Sodium Chloride 10 ml 06/13/19 09:00 06/13/19 08:58 Flush - Normal Saline IVF 10 ml Q12HR [facility] Administration Tramadol HCl 100 mg 06/12/19 12:25 06/13/19 08:56 Ultram PO 100 mg Q6H PRN Administration Severe Pain (7-10) - Exam Neck: negative: supple, symmetric, no JVD, no thyromegaly, no lymphadenopathy, no carotid bruit, JVD Heart: negative: RRR, no murmur, no gallops, no rubs, normal peripheral pulses, irregular, diminshed peripheral pulses, murmur present, II/IV, III/IV Heart - other findings: sternum incision intact Respiratory: negative: CTAB, no wheezes, no rales, no ronchi, normal chest expansion, no tachypnea, normal percussion, rales, rhonchi, tachypneic, wheezes Gastrointestinal: negative: soft, non-tender, non-distended, normal bowel sounds , no palpable masses, no hepatomegaly, no splenomegaly, no bruit, no guarding, no rigidity, tender to palpation, distended, diminished bowl sounds, voluntary guarding Hosp A/P (1) CAD (coronary artery disease) Code(s): I25.10 - ATHSCL HEART DISEASE OF [place] CORONARY ARTERY W/O ANG PCTRS Status: Acute Qualifiers: Coronary Disease-Associated Artery/Lesion type: [place] artery (2) NSTEMI (non-ST elevated myocardial infarction) Code(s): I21.4 - NON-ST ELEVATION (NSTEMI) MYOCARDIAL INFARCTION Status: Acute (3) CKD (chronic kidney disease) stage 3, GFR 30-59 ml/min Code(s): N18.3 - CHRONIC KIDNEY DISEASE, STAGE 3 (MODERATE) Status: Chronic (4) HLD (hyperlipidemia) Code(s): E78.5 - HYPERLIPIDEMIA, UNSPECIFIED Status: Chronic (5) HTN (hypertension) Code(s): I10 - ESSENTIAL (PRIMARY) HYPERTENSION Status: Chronic - Plan s/p cabg pod#1, He is doing well. will continue asa/statin. Pt encouraged to use IS and ambulate. ckd stable. blood sugars acceptable.
[2019-06-13] MEDS: Acetaminophen/Codeine 30-300mg Tablet PO PRN ×2 (17:19→21:33)
[2019-06-13] MEDS: Atorvastatin Calcium 20 MG TAB PO SCH (21:30)
[2019-06-13] MEDS: Metoprolol Tartrate 25 MG TAB PO SCH (21:30)
[2019-06-14] MEDS: Acetaminophen/Codeine 30-300mg Tablet PO PRN ×6 (02:14→22:47)
[2019-06-14] MEDS: Metoprolol Tartrate 25 MG TAB PO SCH ×2 (08:07→21:06)
[2019-06-14] MEDS: Aspirin 325 mg Enteric Coated Tablet PO SCH (08:07)
[2019-06-14] MEDS: Potassium Chloride 10 MEQ TAB PO SCH (08:07)
[2019-06-14] MEDS: Furosemide 40 MG TAB PO SCH (08:08)
[2019-06-14 11:39] LABS: Bacteria/HPF None Seen HPF (None Seen); Bilirubin Negative (Negative); Blood, Urine Negative (Negative); Clarity Clear (Clear); Glucose, Urine (Dipstick) Normal (Negative); Leukocyte Negative Leu/uL (Negative); Nitrite Negative (Negative); Protein, Urine (Dipstick) Negative (Neg-Trace); Squamous Epithelial None Seen HPF (0-3); Urobilinogen Normal mg/dL (Less than 2); WBC/HPF 0-3 HPF (0-3)
[2019-06-14 11:45] LABS: Urine Culture Reflex No No
--- NOTE | 2019-06-14 16:33 | PDOC.HOSPP ---
- Subjective Encounter Date: 06/14/19 Encounter Time: 08:45 Subjective: pt sitting up in chair no complains - Objective Vital Signs & Weight: Vital Signs (12 hours) Temp Pulse Pulse Pulse Resp BP BP 06/14/19 15:07 97.6 F 89 18 06/14/19 12:58 76 84 153/68 H 137/69 06/14/19 11:22 99.9 F H 80 18 06/14/19 09:00 84 79 139/65 129/63 06/14/19 08:00 06/14/19 07:00 98.1 F 76 18 06/14/19 04:51 BP Pulse Ox Pulse Ox Pulse Ox 06/14/19 15:07 126/61 93 L 06/14/19 12:58 06/14/19 11:22 118/62 94 L 06/14/19 09:00 94 L 92 L 06/14/19 08:00 92 L 06/14/19 07:00 110/58 L 92 L 06/14/19 04:51 93 L Weight Weight 242 lb Most Recent Monitor Data Heart Rate from ECG 97 NIBP 115/81 NIBP BP-Mean 92 Respiration from ECG 23 SpO2 92 I&O: 06/13/19 06/14/19 06/15/19 06:59 06:59 06:59 Intake Total 1585 480 Output Total 1550 Balance 35 480 Result Diagrams: 06/13/19 04:29 06/13/19 04:29 Hospitalist ROS - Review of Systems Cardiovascular: denies: chest pain, palpitations, orthopnea, paroxysmal noc. dyspnea, edema, light headedness, other Gastrointestinal: denies: nausea, vomiting, abdominal pain, diarrhea, constipation, melena, hematochezia, other Genitourinary: denies: dysuria, frequency, incontinence, hematuria, retention, other - Medication Medications: Active Medications Generic Name Dose Route Start Last Admin Trade Name Freq PRN Reason Stop Dose Admin Acetaminophen/Codeine Phosphate 1 tab 06/13/19 16:28 06/14/19 15:09 Tylenol #3 PO 1 tab Q4H PRN Administration Moderate Pain (4-6) Aspirin 325 mg 06/13/19 09:00 06/14/19 08:07 Ecotrin PO 325 mg DAILY MEGHNA Administration Atorvastatin Calcium 20 mg 06/12/19 21:00 06/13/19 21:30 Lipitor PO 20 mg HS MEGHNA Administration Fentanyl 25 mcg 06/13/19 08:01 06/13/19 11:09 Sublimaze SLOW IVP 25 mcg Q2H PRN Administration Moderate breakthrough pain Fentanyl 50 mcg 06/13/19 08:01 06/13/19 18:10 Sublimaze SLOW IVP 50 mcg Q2H PRN Administration Severe breakthrough pain Furosemide 40 mg 06/13/19 09:00 06/14/19 08:08 Lasix PO 40 mg DAILY MEGHNA Administration Metoprolol Tartrate 12.5 mg 06/13/19 21:00 06/14/19 08:07 Lopressor PO 12.5 mg BID MEGHNA Administration Pantoprazole Sodium 40 mg 06/13/19 09:00 06/14/19 08:07 Protonix PO 40 mg DAILY MEGHNA Administration Potassium Chloride 10 meq 06/13/19 08:00 06/14/19 08:07 Klor-Con 10 PO 10 meq QAM-WM MEGH[facility] Administration Sodium Chloride 10 ml 06/13/19 09:00 06/14/19 08:08 Flush - Normal Saline IVF 10 ml Q12HR ME[facility] Administration Tramadol HCl 100 mg 06/12/19 12:25 06/13/19 08:56 Ultram PO 100 mg Q6H PRN Administration Severe Pain (7-10) - Exam Neck: negative: supple, symmetric, no JVD, no thyromegaly, no lymphadenopathy, no carotid bruit, JVD Heart: negative: RRR, no murmur, no gallops, no rubs, normal peripheral pulses, irregular, diminshed peripheral pulses, murmur present, II/IV, III/IV Respiratory: negative: CTAB, no wheezes, no rales, no ronchi, normal chest expansion, no tachypnea, normal percussion, rales, rhonchi, tachypneic, wheezes Hosp A/P (1) CAD (coronary artery disease) Code(s): I25.10 - ATHSCL HEART DISEASE OF [place] CORONARY ARTERY W/O ANG PCTRS Status: Acute Qualifiers: Coronary Disease-Associated Artery/Lesion type: [place] artery (2) NSTEMI (non-ST elevated myocardial infarction) Code(s): I21.4 - NON-ST ELEVATION (NSTEMI) MYOCARDIAL INFARCTION Status: Acute (3) CKD (chronic kidney disease) stage 3, GFR 30-59 ml/min Code(s): N18.3 - CHRONIC KIDNEY DISEASE, STAGE 3 (MODERATE) Status: Chronic (4) HLD (hyperlipidemia) Code(s): E78.5 - HYPERLIPIDEMIA, UNSPECIFIED Status: Chronic (5) HTN (hypertension) Code(s): I10 - ESSENTIAL (PRIMARY) HYPERTENSION Status: Chronic - Plan s/p cabg pod#1, He is doing well. will continue asa/statin. Pt encouraged to use IS and ambulate. ckd stable. blood sugars acceptable. 3 POD#2 doing well. possible home in am per cv surgery. will check ua since he has a elevated wbc.
[2019-06-14] MEDS: Atorvastatin Calcium 20 MG TAB PO SCH (21:06)
[2019-06-15] MEDS: Acetaminophen/Codeine 30-300mg Tablet PO PRN ×3 (02:47→11:10)
[2019-06-15 07:03] VITALS: TEMP 98.1
[2019-06-15] MEDS: Aspirin 325 mg Enteric Coated Tablet PO SCH (08:29)
[2019-06-15] MEDS: Metoprolol Tartrate 25 MG TAB PO SCH (08:29)
[2019-06-15] MEDS: Furosemide 40 MG TAB PO SCH (08:30)
[2019-06-15] MEDS: Potassium Chloride 10 MEQ TAB PO SCH (08:30)
[2019-06-15 10:18] VITALS: BP 139/65
[2019-06-15 10:33] LABS: #Eosinphils 0.3 thou/uL (0.0-0.7); #Lymphocytes 1.9 thou/uL (1.20-3.40); #Monocytes 1.4 thou/uL (0.11-0.59); #Neutrophils 7.9 thou/uL (1.40-6.50); %Basophils 0.3 % (0.0-1.0); %Eosinophils 2.6 % (0.0-10.0); %Lymphocytes 16.5 % (21.0-51.0); %Neutrophils 68.5 % (42.0-75.0); Hemoglobin 12.1 g/dL (14.0-18.0); Mean Corpuscular HGB CONC 33.7 g/dL (32.0-36.0); Mean Corpuscular Hemoglobin 31.7 pg (27.0-31.0); Mean Corpuscular Volume 93.9 fL (78.0-98.0); Mean Platelet Volume 7.5 fL (7.4-10.4); Platelet Count 175 thou/uL (130-400); Red Blood Cell (RBC) Count 3.82 mill/uL (4.70-6.10); White Blood Cell (WBC) Count 11.5 thou/uL (4.8-10.8)
[2019-06-15 10:49] LABS: Anion Gap 14 mmol/L (10-20); BUN (Urea Nitrogen) 21 mg/dL (8.4-25.7); Calc. Creatinine Clearance 87 mL/min (70-130); Calcium 8.4 mg/dL (7.8-10.44); Carbon Dioxide 24 mmol/L (23-31); Chloride 105 mmol/L (98-107); Estimated GFR-MDRD 53; Glucose 104 mg/dL (80-115); Sodium 139 mmol/L (136-145)
--- NOTE | 2019-06-16 10:18 | DIS ---
DATE OF ADMISSION: 06/10/2019 DATE OF DISCHARGE: 06/15/2019 PRINCIPAL DIAGNOSIS: Coronary artery disease with [id number] myocardial infarction. SECONDARY DIAGNOSES: 1. Hypertension. 2. Stage 3 chronic kidney disease. PROCEDURES PERFORMED: Cardiac catheterization 06/11/2019. Coronary artery bypass grafting x5 with left internal mammary artery to the LAD, sequential reverse greater saphenous vein graft from the aorta to the first diagonal, second diagonal and separate reverse greater saphenous vein grafts from the aorta to the OM1 and to the PDA 06/12/2019. HISTORY OF PRESENT ILLNESS AND HOSPITAL COURSE: The patient is a 63-year-old man with hypertension. No personal history of coronary artery disease but a family history of coronary artery disease. While working in the garden, he developed chest discomfort that resolved with rest, but recurred with minimal exertion shortly thereafter. He drove to a nearby fire station where he had friends working with EMS. When they evaluated him, he was found to be markedly hypertensive with a blood pressure in the 200/100 range. He was transported to the hospital, where he was found to have no ST elevation, but his initial troponin was elevated at 0.250 and peaked that night at 1.431. Cardiac catheterization demonstrated three-vessel coronary artery disease with preserved left ventricular function. He underwent a 5-vessel coronary bypass procedure the following day and did exceptionally well postoperatively. Beta blockade was initiated. His [place] inhibition was withheld. He looked good enough on postoperative day 2 that it was tempting to consider discharge at that time. He was kept another day, during which his blood pressure crept up a little bit and his beta blockade was adjusted. He is being discharged home now on Toprol-XL 50 mg a day, an aspirin a day, and Lipitor 20 mg a day. Job ID: [id number]
== END 2019-06-15 11:53 | disposition home or self-care (01) | DRG 234 ==
LOC: ERS 13:16 → 2NO 16:38 → CCU 06-12 10:30 → 2NO 06-13 09:35
PROVIDERS: ADMIT Emergency Medicine; ATTEND Emergency Medicine
PROC: 4A023N7 Measurement of Cardiac Sampling and Pressure, Left Heart, Percutaneous Approach (ICD-10-PCS; principal; 2019-06-11)
PROC: B2111ZZ Fluoroscopy of Multiple Coronary Arteries using Low Osmolar Contrast (ICD-10-PCS; 2019-06-11)
PROC: 02100Z9 Bypass Coronary Artery, One Artery from Left Internal Mammary, Open Approach (ICD-10-PCS; 2019-06-12)
PROC: 021309W Bypass Coronary Artery, Four or More Arteries from Aorta with Autologous Venous Tissue, Open Approach (ICD-10-PCS; 2019-06-12)
PROC: 06BQ4ZZ Excision of Left Saphenous Vein, Percutaneous Endoscopic Approach (ICD-10-PCS; 2019-06-12)
PROC: 5A1221Z Performance of Cardiac Output, Continuous (ICD-10-PCS; 2019-06-12)
DX: I21.4 Non-ST elevation (NSTEMI) myocardial infarction (principal); E78.5 Hyperlipidemia, unspecified; I12.9 Hypertensive chronic kidney disease with stage 1 through stage 4 chronic kidney disease, or unspecified chronic kidney disease; N18.3 Chronic kidney disease, stage 3 (moderate); K44.9 Diaphragmatic hernia without obstruction or gangrene; I25.10 Atherosclerotic heart disease of native coronary artery without angina pectoris; Z90.89 Acquired absence of other organs
CPT/HCPCS: 36415; 36416; 36430; 71045; 80048; 80053; 80061; 81001; 82553; 82805; 83735; 84443; 84484; 85025; 85610; 85730; 86850; 86900; 86901; 93005; 93010; 93458; 93798; 94002; 94150; 94760; 96372; C1769; J0690; J1100; J1642; J1644; J1650; J1815; J2001; J2250; J2270; J2370; J2440; J2704; J2720; J3010; J3370; J3475; J3480; J3490; P9045; Q9967; S0017; S0020; S0028

== ENCOUNTER 2023-08-14 10:31 | Outpatient (CLI) | payer MEDICARE ==
[2023-08-14 12:11] LABS: Anion Gap 13 mmol/L (10-20); BUN (Urea Nitrogen) 43 mg/dL (8.4-25.7); Calc. Creatinine Clearance 0 mL/min (70-130); Calcium 9.1 mg/dL (7.8-10.44); Carbon Dioxide 24 mmol/L (23-31); Chloride 109 mmol/L (98-107); Estimated GFR 35; Glucose 81 mg/dL (80-115); Potassium 4.5 mmol/L (3.5-5.1); Sodium 141 mmol/L (136-145)
== END 2023-08-14 10:32 | disposition home or self-care (01) ==
LOC: LABBT 10:31
PROVIDERS: ATTEND Surgery
DX: Z01.812 Encounter for preprocedural laboratory examination (principal); K43.9 Ventral hernia without obstruction or gangrene; K40.90 Unilateral inguinal hernia, without obstruction or gangrene, not specified as recurrent
CPT/HCPCS: 80048

== ENCOUNTER 2023-08-21 06:28 | Day surgery (SDC) | payer MEDICARE ==
[2023-08-14 10:55] VITALS: BMI 32.5
[2023-08-21] MEDS ORDERED: Bupivacaine 0.25% HCL 30 ML VIAL ONE (06:56)
[2023-08-21] MEDS ORDERED: EPINEPHrine 1 MG/ML VIAL ONE (06:56)
[2023-08-21] MEDS ORDERED: PROPOFOL 40 ML ONE (06:57)
[2023-08-21] MEDS ORDERED: fentaNYL PF 100 MCG/2 ML SYRINGE ONE (06:57)
[2023-08-21] MEDS ORDERED: Rocuronium Bromide 10 MG/ML (10ML VIAL) ONE (06:58)
[2023-08-21] MEDS ORDERED: Lidocaine 1% PF 5 ML VIAL ONE (06:58)
[2023-08-21] MEDS ORDERED: CEFAZOLIN 2 GM VIAL ONE (07:02)
[2023-08-21] MEDS ORDERED: Sodium Chloride 0.9% 100 ML ONE ×2 (07:03→08:41)
[2023-08-21] MEDS ORDERED: Dexamethasone 20 MG/5 ML VIAL ONE (08:03)
[2023-08-21] MEDS ORDERED: ePHEDrine Sulfate 50 MG/10 ML VIAL ONE (08:08)
[2023-08-21] MEDS ORDERED: MINERAL OIL/WHITE PETROLATUM 3.5 GM TUBE ONE (08:41)
[2023-08-21] MEDS ORDERED: Dexmedetomidine 200 MCG/2 ML VIAL ONE (08:41)
[2023-08-21] MEDS ORDERED: Ondansetron PF 4 MG/2 ML Vial ONE (09:06)
[2023-08-21] MEDS ORDERED: SUGAMMADEX SODIUM 200 MG/2 ML VIAL ONE (09:07)
[2023-08-21] MEDS ORDERED: HYDROcodone/Acetaminophen 5/325 mg Tablet ONE (10:23)
== END 2023-08-21 11:00 | disposition home or self-care (01) ==
LOC: SDC 06:28
PROVIDERS: ATTEND Surgery
PROC: 0YUA4JZ Supplement Bilateral Inguinal Region with Synthetic Substitute, Percutaneous Endoscopic Approach (ICD-10-PCS; principal; 2023-08-21)
PROC: 0WUF4JZ Supplement Abdominal Wall with Synthetic Substitute, Percutaneous Endoscopic Approach (ICD-10-PCS; 2023-08-21)
DX: K43.9 Ventral hernia without obstruction or gangrene (principal); K40.90 Unilateral inguinal hernia, without obstruction or gangrene, not specified as recurrent
CPT/HCPCS: 49591; 49650; J0171; J0665; J1100; J2405; J2704; J3490; A4314; C1781

== ENCOUNTER 2023-12-13 19:58 | Emergency (ER) | payer MEDICARE ==
[2023-12-13 21:55] LABS: Bilirubin Negative (Negative); Blood, Urine 3+ (Negative); CAUTI Indications for Culture Dysuria,urgency,freq; Clarity Clear (Clear); Glucose, Urine (Dipstick) Normal (Negative); Ketone, Urine Negative (Negative); Leukocyte 75 Leu/uL (Negative); Nitrite Negative (Negative); Protein, Urine (Dipstick) 50 mg/dL (Neg-Trace); RBC/HPF Greater than 50 HPF (0-3); Specific Gravity, Urine 1.023 (1.002-1.036); Squamous Epithelial None Seen HPF (0-3); Urobilinogen Normal mg/dL (Less than 2); WBC/HPF 21-50 HPF (0-3); pH, Urine 5.5 (5.0-9.0)
[2023-12-13 22:04] LABS: Bacteria/HPF 1+ HPF (None Seen)
[2023-12-13 22:09] LABS: Urine Culture Reflex Yes Yes
== END 2023-12-13 22:57 | disposition home or self-care (01) ==
LOC: ERS 19:58
DX: R33.9 Retention of urine, unspecified (principal); I10 Essential (primary) hypertension
CPT/HCPCS: 51702; 81001; 87086; 99283

== ENCOUNTER 2024-02-14 20:08 | Emergency (ER) | payer MEDICARE ==
[2024-02-14] MEDS ORDERED: Lidocaine 1% w/Epinephrine 1:100K 20 ML VIAL ONE (20:59)
[2024-02-14] MEDS ORDERED: Boostrix 0.5 ML (Tdap) VIAL (>/=7 yrs of age) ONE (20:59)
[2024-02-14] MEDS ORDERED: Bacitracin 1 PK ONE (21:29)
== END 2024-02-15 00:41 | disposition home or self-care (01) ==
LOC: ERS 20:08
DX: S61.412A Laceration without foreign body of left hand, initial encounter (principal); I10 Essential (primary) hypertension; W25.XXXA Contact with sharp glass, initial encounter; Z23 Encounter for immunization
CPT/HCPCS: 12002; 90471; 90715